=== PATIENT | male | born 1935 | race Caucasian/White ===

== ENCOUNTER 2016-09-30 08:54 | Inpatient (IN) ==
[2016-10-01] MEDS ORDERED: PNEUMOCOCCAL VAC ADMIN CHARGE INJ ONE (22:00)
[2016-10-02] MEDS ORDERED: CEFAZOLIN 2 G in NS 100 ML IV SCH (04:30)
[2016-10-02] MEDS ORDERED: PROMETHAZINE 25 MG INJECTION IVP PRN (05:00)
[2016-10-02] MEDS ORDERED: NITROGLYCERIN 0.4 MG SUBLINGUAL TABLET SL PRN (05:00)
[2016-10-02] MEDS ORDERED: ACETAMINOPHEN 325 MG TABLET PO PRN ×2 (05:00)
[2016-10-02] MEDS ORDERED: MAG-AL + SIM ORAL LIQUID 30ml PO PRN ×2 (05:00)
[2016-10-02] MEDS ORDERED: POM ALBUTEROL HFA INHALER 8gm ORAL INH PRN (05:00)
[2016-10-02] MEDS ORDERED: METOCLOPRAMIDE 10mg/2ml INJECTION IVP PRN (05:00)
[2016-10-02] MEDS ORDERED: BISACODYL 10 MG SUPPOSITORY RECTALLY PRN (05:00)
[2016-10-02] MEDS ORDERED: SALINE FLUSH 10ml SYRINGE IVF PRN (05:00)
[2016-10-02] MEDS ORDERED: BISACODYL E.C. 5 MG TABLET PO PRN ×2 (05:00)
[2016-10-02] MEDS ORDERED: LORazepam 1 MG TABLET PO PRN (05:00)
[2016-10-02] MEDS: SOTALOL 120 MG TABLET PO SCH ×2 (06:13→18:00)
--- NOTE | 2016-10-02 08:38 | XRay Report ---
INDICATION: post ppm PROCEDURE: CHEST 2-VIEWS UPRIGHT (PA & LAT) Encounter: Initial COMPARISON: October 01, 2016 FINDINGS: Left cardiac dual lead pacemaker appears stable without evidence of lead discontinuity or fracture. Lungs are stable and clear. No visible pneumothorax. Poststernotomy changes. Heart size, pulmonary vascularity and mediastinal contours are stable. Impression: Stable appearance of the left pacemaker without pneumothorax. .
[2016-10-02] MEDS ORDERED: FLUTICASONE ORAL INH SCH (09:00)
[2016-10-02] MEDS ORDERED: MINOCYCLINE 100 MG CAPSULE PO SCH (09:00)
[2016-10-02] MEDS ORDERED: LISINOPRIL 5 MG PO SCH (09:00)
[2016-10-02] MEDS ORDERED: SALMETEROL ORAL INH SCH (09:00)
[2016-10-02] MEDS: NS 1,000 ML IV SCH ×2 (13:22→14:58)
--- NOTE | 2016-10-02 18:49 | Discharge Summary ---
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
--- NOTE | 2016-10-02 20:37 | Discharge Summary ---
Discharge Information Date of admission: 10/01/16 11:10 Attending Physician: Shirley Hedrick MD Consults: 10/01/16 Pharmacy Consult [CONS] Urgent Pharmacy Consult: Heparin Comment: DX A flutter caridoversion, pacemaker surg in AM - Laboratory Labs: 10/02/16 04:36 10/02/16 04:36 History of Present Illness HPI: 10/02/16 20:30 Mr. Terrazas is doing great. Feeling much better. Only mild incisional discomfort better after Tylenol no pain drainage or swelling. Denies chest pain or shortness of breath. Has been ambulating. No symptoms otherwise normal urine and bowel movement 10/02/16 20:32 Physical examination vital signs are stable looks in no acute cardiac respiratory distress no JVD chest is clear heart is regular rate and rhythm normal S1-S2 pacemaker site looks very good well approximated mild bruise lateral to the pocket no hematoma abdomen soft nontender nondistended normoactive bowel sounds looks which without any pitting edema neurologically intact Diagnostic reviewed in detail labs are okay chest x-ray normal pacemaker position no pneumothorax. Pacemaker interrogation looks great normal function EKG looks good long first-degree AV block atrial paced more than 70% QT okay. Post pacemaker instructions and the patient provided the patient detail he was understanding I asked him to restart his Xarelto tomorrow and watch for hematoma or bleed. Patient needs anticoagulation post-cardioversion and is planned long-term. prescription provided and follow-up in my office in one to 2 weeks . Hospital Course Hospital course: Mr. Terrazas is a 81 year old male Discharge Plan - Med Rec/Dispo Truven Instructions: [facility] [place] Pacemaker Implantation Prescriptions: New Acetaminophen [Tylenol] 650 mg PO Q4H PRN PRN Reason: Pain Sotalol [Betapace] 120 mg PO ACBID #60 Minocycline [Minocin] 100 mg PO BID #10 cap No Action Albuterol Sulfate [Proair Hfa] 1 puff INH Q6H PRN #0 inhaler PRN 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 Lisinopril 5 mg PO DAILY #0 tab Rivaroxaban [Xarelto] 20 mg PO DAILY #30 tab Fluticasone/Salmeterol [Advair Hfa 115-21 Mcg Inhaler] 1 puff IH DAILY #0 Glucosam Hcl/Chondro Zamudio A/C/Mn (Glucos-Chond 500 Complex Cp) 2 cap PO HS #0 cap Atorvastatin Calcium 20 mg PO HS #0 tab - Disposition 01 Discharged Home, Self-Care
[2016-10-02] MEDS ORDERED: GLUCOSAMINE/CHONDROITIN 500 MG/400 MG CAPSULE PO SCH (22:00)
[2016-10-02] MEDS ORDERED: POM ATORVASTATIN 40 MG TABLET PO SCH (22:00)
== END 2016-10-02 19:15 | disposition home or self-care (01) | DRG 243 ==
LOC: SRG 08:54
PROVIDERS: ADMIT Internal Medicine Cardiovascular Disease; ATTEND Internal Medicine Cardiovascular Disease

== ENCOUNTER 2017-06-30 05:55 | Inpatient (IN) ==
[2017-06-30] MEDS ORDERED: ASPIRIN 81 MG CHEWABLE TABLET PO ONE (06:13)
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
[2017-06-30] MEDS: NITROGLYCERIN 0.4 MG SUBLINGUAL TABLET SL PRN ×3 (06:20→06:49)
[2017-06-30] MEDS: SALINE FLUSH 10ml SYRINGE IVF PRN (06:20)
[2017-06-30] MEDS ORDERED: AZITHROMYCIN IV 500 MG in NS 250ml 250 ML IV ONE (07:20)
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
[2017-06-30 08:12] VITALS: BMI 31.8
[2017-06-30] MEDS ORDERED: CEFTRIAXONE 500 MG in NS 50 ML IV SCH (09:00)
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
[2017-06-30] MEDS: ACETAMINOPHEN 500 MG TABLET PO PRN ×3 (10:29→22:50)
[2017-06-30] MEDS ORDERED: NITROGLYCERIN 0.4 MG SUBLINGUAL TABLET SL PRN (10:35)
[2017-06-30] MEDS ORDERED: CEFTRIAXONE 500 MG in NS 50 ML IV ONE (10:40)
[2017-06-30] MEDS: ALBUTEROL/IPRATROPIUM 2.5mg-0.5mg/3ml NEB AEROSOL SCH ×3 (12:28→20:11)
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
[2017-06-30] MEDS ORDERED: HYDROCODONE/APAP 5mg/325mg TABLET PO PRN (13:05)
[2017-06-30] MEDS ORDERED: MORPHINE SULFATE 4mg INJECTION IVP PRN (14:24)
[2017-06-30] MEDS: GUAIFENESIN/D-METHORPHAN 600mg/30mg TABLET PO SCH ×2 (14:29→21:15)
[2017-06-30] MEDS: SOTALOL 120 MG TABLET PO SCH (16:50)
[2017-06-30] MEDS: NS 1,000 ML IV SCH (17:56)
[2017-06-30] MEDS: ATORVASTATIN 20 MG TABLET PO SCH (21:15)
[2017-07-01] MEDS: ACETAMINOPHEN 500 MG TABLET PO PRN ×3 (04:52→17:37)
[2017-07-01] MEDS: ALBUTEROL/IPRATROPIUM 2.5mg-0.5mg/3ml NEB AEROSOL SCH ×4 (06:30→19:00)
[2017-07-01] MEDS ORDERED: ISOSORBIDE MONONITRATE ER 60 MG TABLET PO SCH ×2 (06:30→09:00)
[2017-07-01] MEDS: SOTALOL 120 MG TABLET PO SCH ×2 (06:58→17:37)
[2017-07-01] MEDS: AZITHROMYCIN IV 500 MG in NS 250ml 250 ML IV SCH (06:58)
[2017-07-01] MEDS: LORazepam 0.5 MG TABLET PO PRN ×3 (08:54→21:33)
[2017-07-01] MEDS: GUAIFENESIN/D-METHORPHAN 600mg/30mg TABLET PO SCH ×2 (08:55→21:28)
[2017-07-01] MEDS: CLOPIDOGREL 75 MG TABLET PO SCH (08:55)
[2017-07-01] MEDS: TRAMADOL 50 MG TABLET PO PRN ×3 (08:55→21:32)
[2017-07-01] MEDS: CEFTRIAXONE 1 G in NS 50 ML IV SCH (08:56)
[2017-07-01] MEDS: ASPIRIN *EC* 81 MG TABLET PO SCH (08:58)
[2017-07-01] MEDS ORDERED: SALMETEROL ORAL INH SCH (09:00)
[2017-07-01] MEDS ORDERED: LISINOPRIL 5 MG TABLET PO SCH (09:00)
[2017-07-01] MEDS ORDERED: FLUTICASONE ORAL INH SCH (09:00)
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
--- NOTE | 2017-07-01 11:34 | Cardiology Progress Note ---
<Muriel Pollock L - Last Filed: 07/01/17 15:27> Exam Vital signs: Temperature 95.8 F L 07/01/17 07:33 Pulse Rate 68 07/01/17 07:33 Respiratory Rate 22 07/01/17 10:40 Blood Pressure 126/58 07/01/17 07:33 Pulse Oximetry 94 07/01/17 10:50 Inpatient Medications: Generic Name Dose Route Start Last Admin Trade Name Freq PRN Reason Stop Dose Admin Acetaminophen 1,000 mg 06/30/17 10:25 07/01/17 04:52 Tylenol PO 1,000 mg Q6H PRN Administration Discomfort Hydrocodone Bitart/Acetaminophen 1 tab 06/30/17 13:05 06/30/17 13:10 [place] 5/325 PO 1 tab Q4H PRN Administration Pain Albuterol/Ipratropium 3 ml 06/30/17 11:00 07/01/17 10:40 Duoneb AEROSOL 3 ml RTQID ALEXA Administration Aspirin 81 mg 07/01/17 09:00 07/01/17 08:58 Ecotrin PO 81 mg DAILY ALEXA Administration Atorvastatin Calcium 20 mg 06/30/17 21:00 06/30/17 21:15 Lipitor PO 20 mg HS ALEXA Administration Budesonide 0.5 mg 07/01/17 19:00 Pulmicort Inhalation AEROSOL RTBID ALEXA Clopidogrel Bisulfate 75 mg 07/01/17 09:00 07/01/17 08:55 Plavix PO 75 mg DAILY ALEXA Administration Guaifenesin/Dextromethorphan 1 tab 06/30/17 14:24 07/01/17 08:55 Mucinex Dm PO 1 tab BID ALEXA Administration Azithromycin 500 mg/ Sodium 250 mls @ 167 mls/hr 07/01/17 07:30 07/01/17 09: 04 Chloride IV Infused Q24H ALEXA Infusion Ceftriaxone Sodium 1 g/ Sodium 50 mls @ 100 mls/hr 07/01/17 09:00 07/01/17 09 :36 Chloride IV Infused Q24H ALEXA Infusion Sodium Chloride 1,000 mls @ 50 mls/hr 06/30/17 18:00 06/30/17 17:56 Normal Saline IV 50 mls/hr .Q20H ALEXA Administration Isosorbide Mononitrate 120 mg 07/01/17 06:30 Imdur PO ACB ALEXA Lisinopril 5 mg 07/01/17 09:00 07/01/17 08:55 Prinivil PO 5 mg DAILY ALEXA Administration Lorazepam 0.25 - 0.5 mg 07/01/17 08:12 07/01/17 08:54 Ativan PO 0.25 mg Q6H PRN Administration Morphine Sulfate 2 - 4 mg 06/30/17 14:24 06/30/17 14:30 Morphine Sulfate Inj IVP 4 mg Q2H PRN Administration Pain Nitroglycerin 0.4 mg 06/30/17 10:35 Nitrostat SL Q5M PRN chest pain or pressure Sodium Chloride 10 - 80 ml 06/30/17 06:13 06/30/17 06:20 Iv Flush IVF 10 ml PRN PRN Administration Flushing Sotalol HCl 120 mg 06/30/17 17:00 07/01/17 06:58 Betapace PO 120 mg ACBID ALEXA Administration Tramadol HCl 50 - 100 mg 07/01/17 08:13 07/01/17 08:55 Ultram PO 50 mg Q6H PRN Administration Pain Discontinued Medications Generic Name Dose Route Start Last Admin Trade Name Freq PRN Reason Stop Dose Admin Aspirin 324 mg 06/30/17 06:13 06/30/17 06:18 Asa PO 06/30/17 06:14 324 mg O ONE Administration Azithromycin 500 mg/ Sodium 250 mls @ 167 mls/hr 06/30/17 07:20 06/30/17 09: 16 Chloride IV 06/30/17 08:49 Infused O ONE Infusion Ceftriaxone Sodium 500 mg/ 50 mls @ 100 mls/hr 06/30/17 09:00 06/30/17 09:50 Sodium Chloride IV Infused DAILY ALEXA Infusion Ceftriaxone Sodium 500 mg/ 50 mls @ 100 mls/hr 06/30/17 10:40 06/30/17 11:42 Sodium Chloride IV 06/30/17 11:09 Infused DAILY ONE Infusion Isosorbide Mononitrate 60 mg 07/01/17 09:00 Imdur PO DAILY ALEXA Nitroglycerin 0.4 mg 06/30/17 06:13 06/30/17 06:49 Nitrostat SL 0.4 mg Q5MIN3 PRN Administration Chest pain Fluticasone/Salmeterol 1 puff 07/01/17 09:00 07/01/17 11:10 Advair Hfa ORAL INH Not Given DAILY ALEXA - Constitutional no acute distress, well developed, obese, cooperative - Routine HEENT Exam Head: Present: normocephalic, atraumatic Eye: Present: EOMI ENT: Present: mucous membranes dry - Routine Neck Exam Present: supple, full ROM, normal carotid upstroke. Absent: JVD, carotid bruit - Routine Chest/Breast/Axilla Exam Chest wall: Present: pacemaker (PPM and bypass scars look good) - Routine Respiratory Exam Present: decreased breath sounds (bases). Absent: rhonchi, wheezes, crackles - Routine Cardiovascular Exam Present: RRR. Absent: murmur - Routine Abdominal Exam Present: soft, normoactive bowel sounds, non distended, non tender. Absent: organomegaly, mass - Routine Extremities Exam Present: edema (minimal bilateral ankle pitting edema), pulses intact, normal capillary refill. Absent: cyanosis, clubbing - Routine Skin Exam Present: intact, dry, warm. Absent: cyanosis, erythema - Routine Neurological Exam Present: alert, oriented X3, CN II-XII intact, moving all extremities, vision grossly intact, hearing grossly intact, normal speech - Routine Psychiatric Exam Present: normal affect, cooperative, good judgment Results 07/01/17 11:28 07/01/17 11:28 Cardiac Enzymes 06/30/17 Range/Units 17:46 Troponin I 0.035 (0-0.12) ng/ml CBC 07/01/17 Range/Units 04:08 WBC 25.8 H* (4.5-11.0) T/MM3 RBC 4.13 L (4.50-5.90) M/MM3 Hgb 12.2 L (13.5-17.5) GM/DL Hct 38.4 L (41-53) % Plt Count 222 (130-400) T/MM3 Neut # (Auto) Not performed Lymph # (Auto) Not performed [place] # (Auto) Not performed Eos # (Auto) Not performed Baso # (Auto) Not performed Comprehensive Metabolic Panel 07/01/17 Range/Units 04:08 Sodium 139 (134-144) MEQ/L Potassium 4.4 (3.6-5) MEQ/L Chloride 101 (98-107) MEQ/L Carbon Dioxide 24 (22-30) MEQ/L BUN 28.0 H D (9-20) MG/DL Creatinine 1.3 D (0.8-1.5) MG/DL Glucose 119 H (75-110) MG/DL Calcium 9.1 (8.4-10.2) MG/DL Intake and Output 06/30/17 07/01/17 07/01/17 22:59 06:59 14:59 Intake Total 250 / 250 300 / 300 300 / 300 Output Total 275 / 275 Balance 250 / 250 25 / 25 300 / 300 Intake: IV 300 / 300 Azithromycin IV 500 mg In NS 250 / 250 250ml 250 ml @ 167 mls/hr IV Q24H ALEXA Rx#:[id number] Ceftriaxone 1 g In Ns 50 ml @ 50 / 50 100 mls/hr IV Q24H ALEXA Rx#: [id number] Oral 250 / 250 300 / 300 Output: Urine 275 / 275 Other: Urine Appearance Clear Urine Color Dark Carol Urine Odor Normal Size of Bowel Movement Moderate # Voids 1 # Bowel Movements 1 - Imaging and Cardiology Echo: image reviewed (please refer to echo report) EKG results: image reviewed (SR with 1st degree AV block, improved T wave inversion, inferior q waves) Assessment and Plan - Assessment and Plan pleuritic CP d/t LLL pneumonia abnormal ekg - with repolarization abnormality, memory phenomenon from previous ventricular paced rhythm vs. sotalol effect vs. silent myocardial ischemia CAD s/p CABG influenza Reschedule December OP appt sooner to week of August Will sign off d/t non cardiac related CP. Please call if need further assistance. Thank you Pt was personally seen and interviewed by Dr. Yousuf Hedrick who created the A&P. Hospital Course Summary Disclaimer: The visit summary below is not to be considered part of the above Progress Note. Hospital Course: 06/30/17 Admit, observation status, under Dr. Marrero. Later changed to inpatient. CAP/leukocytosis: PSI/PORT score 101, risk class IV with 8.2-9.3% mortality. Rocephin/Azithromycin for antimicrobial coverage. Acapella. Check urine legionella and strep pneumo antigens. Chest wall pain: Tylenol PRN (pt refuses anything stronger than Tylenol). COPD: DuoNeb QID, resume home Advair. Monitor sats closely - high risk for hypoxia. Abnormal EKG: will discuss with Dr. Hedrick. Advanced directives: Daughter (Summer) used to be DPOA but as her caregiver, she is not allowed to do both duties. He requests full resuscitation. 07/01/17 Increasing leukocytosis (25.8) and bandemia (17%). Continue Rocephin and azithromycin for CAP (Day #2). Supportive care for influenza B -- he was outside the window for treatment with Tamiflu. Substitute Pulmicort for Advair and continue DuoNeb. Urine legionella was negative; strep pneumo pending. Tramadol and low-dose Ativan PRN chest wall pain and air hunger. Slight increase in creatinine to 1.3 - continue with IVF. No evidence of failure. Dr. Hedrick on board and we appreciate his expertise in balancing fluid status. <Shirley Hedrick - Last Filed: 07/06/17 22:27> Exam Vital signs: Temperature 95.8 F L 07/01/17 15:00 Pulse Rate 67 07/01/17 17:37 Respiratory Rate 18 07/01/17 19:00 Blood Pressure 109/50 07/01/17 15:00 Pulse Oximetry 95 07/01/17 15:00 Inpatient Medications: Generic Name Dose Route Start Last Admin Trade Name Freq PRN Reason Stop Dose Admin Acetaminophen 1,000 mg 06/30/17 10:25 07/01/17 17:37 Tylenol PO 1,000 mg Q6H PRN Administration Discomfort Hydrocodone Bitart/Acetaminophen 1 tab 06/30/17 13:05 06/30/17 13:10 [place] 5/325 PO 1 tab Q4H PRN Administration Pain Albuterol/Ipratropium 3 ml 06/30/17 11:00 07/01/17 19:00 Duoneb AEROSOL 3 ml RTQID ALEXA Administration Aspirin 81 mg 07/01/17 09:00 07/01/17 08:58 Ecotrin PO 81 mg DAILY ALEXA Administration Atorvastatin Calcium 20 mg 06/30/17 21:00 06/30/17 21:15 Lipitor PO 20 mg HS ALEXA Administration Budesonide 0.5 mg 07/01/17 19:00 07/01/17 19:00 Pulmicort Inhalation AEROSOL 0.5 mg RTBID ALEXA Administration Clopidogrel Bisulfate 75 mg 07/01/17 09:00 07/01/17 08:55 Plavix PO 75 mg DAILY ALEXA Administration Guaifenesin/Dextromethorphan 1 tab 06/30/17 14:24 07/01/17 08:55 Mucinex Dm PO 1 tab BID ALEXA Administration Azithromycin 500 mg/ Sodium 250 mls @ 167 mls/hr 07/01/17 07:30 07/01/17 09: 04 Chloride IV Infused Q24H ALEXA Infusion Ceftriaxone Sodium 1 g/ Sodium 50 mls @ 100 mls/hr 07/01/17 09:00 07/01/17 09 :36 Chloride IV Infused Q24H ALEXA Infusion Sodium Chloride 1,000 mls @ 50 mls/hr 06/30/17 18:00 07/01/17 17:36 Normal Saline IV 50 mls/hr .Q20H ALEXA Administration Isosorbide Mononitrate 120 mg 07/01/17 06:30 Imdur PO ACB ALEXA Lisinopril 5 mg 07/01/17 09:00 07/01/17 08:55 Prinivil PO 5 mg DAILY ALEXA Administration Lorazepam 0.25 - 0.5 mg 07/01/17 08:12 07/01/17 15:33 Ativan PO 0.25 mg Q6H PRN Administration Morphine Sulfate 2 - 4 mg 06/30/17 14:24 06/30/17 14:30 Morphine Sulfate Inj IVP 4 mg Q2H PRN Administration Pain Nitroglycerin 0.4 mg 06/30/17 10:35 Nitrostat SL Q5M PRN chest pain or pressure Sodium Chloride 10 - 80 ml 06/30/17 06:13 06/30/17 06:20 Iv Flush IVF 10 ml PRN PRN Administration Flushing Sotalol HCl 120 mg 06/30/17 17:00 07/01/17 17:37 Betapace PO 120 mg ACBID ALEXA Administration Tramadol HCl 50 - 100 mg 07/01/17 08:13 07/01/17 15:33 Ultram PO 100 mg Q6H PRN Administration Pain Discontinued Medications Generic Name Dose Route Start Last Admin Trade Name Freq PRN Reason Stop Dose Admin Aspirin 324 mg 06/30/17 06:13 06/30/17 06:18 Asa PO 06/30/17 06:14 324 mg O ONE Administration Azithromycin 500 mg/ Sodium 250 mls @ 167 mls/hr 06/30/17 07:20 06/30/17 09: 16 Chloride IV 06/30/17 08:49 Infused O ONE Infusion Ceftriaxone Sodium 500 mg/ 50 mls @ 100 mls/hr 06/30/17 09:00 06/30/17 09:50 Sodium Chloride IV Infused DAILY ALEXA Infusion Ceftriaxone Sodium 500 mg/ 50 mls @ 100 mls/hr 06/30/17 10:40 06/30/17 11:42 Sodium Chloride IV 06/30/17 11:09 Infused DAILY ONE Infusion Isosorbide Mononitrate 60 mg 07/01/17 09:00 Imdur PO DAILY ALEXA Nitroglycerin 0.4 mg 06/30/17 06:13 06/30/17 06:49 Nitrostat SL 0.4 mg Q5MIN3 PRN Administration Chest pain Fluticasone/Salmeterol 1 puff 07/01/17 09:00 07/01/17 11:10 Advair Hfa ORAL INH Not Given DAILY [facility] Results 07/06/17 04:03 07/06/17 04:03 CBC 07/01/17 07/01/17 Range/Units 04:08 11:28 WBC 25.8 H* 23.4 H (4.5-11.0) T/MM3 RBC 4.13 L 3.97 L (4.50-5.90) M/MM3 Hgb 12.2 L 11.8 L (13.5-17.5) GM/DL Hct 38.4 L 36.9 L (41-53) % Plt Count 222 209 (130-400) T/MM3 Neut # (Auto) Not performed Not performed Lymph # (Auto) Not performed Not performed [place] # (Auto) Not performed Not performed Eos # (Auto) Not performed Not performed Baso # (Auto) Not performed Not performed Comprehensive Metabolic Panel 07/01/17 07/01/17 Range/Units 04:08 11:28 Sodium 139 138 (134-144) MEQ/L Potassium 4.4 4.1 (3.6-5) MEQ/L Chloride 101 101 (98-107) MEQ/L Carbon Dioxide 24 27 (22-30) MEQ/L BUN 28.0 H D 30.0 H (9-20) MG/DL Creatinine 1.3 D 1.3 (0.8-1.5) MG/DL Glucose 119 H 115 H (75-110) MG/DL Calcium 9.1 8.7 (8.4-10.2) MG/DL Intake and Output 07/01/17 07/01/17 07/01/17 06:59 14:59 22:59 Intake Total 300 / 300 2099 / 2099 Output Total 275 / 275 Balance 2099 Intake: IV 1300 / 1300 Azithromycin IV 500 mg In NS 250 / 250 250ml 250 ml @ 167 mls/hr IV Q24H ALEXA Rx#:[id number] Ceftriaxone 1 g In Ns 50 ml @ 50 / 50 100 mls/hr IV Q24H ALEXA Rx#: [id number] Ns 1,000 ml @ 50 mls/hr IV . 1000 / 1000 Q20H ALEXA Rx#:[id number] Oral 300 / 300 800 / 800 Output: Urine 275 / 275 Other: Urine Appearance Clear Urine Color Dark Carol Urine Odor Normal Size of Bowel Movement Moderate # Voids 1 # Bowel Movements 1 Weight 103.5 kg Patient Weight 07/02/17 06:59 Weight 103.5 kg Assessment and Plan - Assessment and Plan EKG abnormality is most likley d/t memory phenomenon. no regional wall motion abnormality on echocardiogram , to suggest silent myocardial ischemia of that size. EKG changes look less prominent in comparison. no acute coronary syndrome continue current medical Rx isosorbide held this am d/t relative hypotension will stop lisinopril (risk of hypotension >benefit ) ,so that pt gets back on his Isosorbide as an effective antianginal Rx will see tomorrow for f/u on BP. I personally interviewed and examined pt and formualted the assessment and plan . agree with the above. - Attestation Attestation Narrative: 07/06/17 22:27 i personally interviewed and examined pt and I agree with the above Hospital Course Summary Disclaimer: The visit summary below is not to be considered part of the above Progress Note.
--- NOTE | 2017-07-01 17:00 | Echocardiogram ---
LIMITED ECHOCARDIOGRAM DATE 06/30/2017 INDICATION Abnormal EKG, influenza, coronary artery disease with previous CABG. TECHNICAL QUALITY: Technically difficult and limited study due to only limited views were obtained. Basically parasternal 2D images with limited Doppler. The study was not completed due to patient's intolerance to supine position which is chronic for him and associated with his chronic obstructive pulmonary disease. FINDINGS 1. CARDIAC CHAMBERS. All cardiac chambers are grossly normal in size. RV size and contractility appear normal. Left atrium measures 3.2 cm. Left ventricle measures 5.1 cm. 2. LV FUNCTION. Analysis reveals wall thickness to be upper normal range, measured 10.6 mm in the posterior wall, 11.3 mm in the septal wall. Wall motion analysis based on the limited views (parasternal long axis and short axis views) show normal contractility and normal LV systolic function and no significant regional wall motion abnormality was appreciated. Ejection fraction is estimated about 65%. 3. VALVES. Aortic valve exhibits sclerotic changes, valve excursion is normal. Mitral valve structure and motion appear normal, normal valve excursion. 4. DOPPLER. Limited Doppler did not show any significant valvular stenosis or regurgitation. 5. No evidence of pericardial effusion, intracardiac masses, thrombi, vegetations or shunts. IMPRESSION 1. Technically limited study. 2. Borderline LVH with good systolic function and no significant regional wall motion abnormality seen. MTDD
[2017-07-01] MEDS: NS 1,000 ML IV SCH (17:36)
[2017-07-01] MEDS: BUDESONIDE INH.SOLN 0.5mg/2ml NEB AEROSOL SCH (19:00)
[2017-07-01] MEDS: ATORVASTATIN 20 MG TABLET PO SCH (21:28)
[2017-07-02] MEDS: ACETAMINOPHEN 500 MG TABLET PO PRN ×3 (00:42→23:38)
[2017-07-02] MEDS: SOTALOL 120 MG TABLET PO SCH ×2 (06:11→18:09)
[2017-07-02] MEDS: BUDESONIDE INH.SOLN 0.5mg/2ml NEB AEROSOL SCH ×2 (07:35→19:02)
[2017-07-02] MEDS: ALBUTEROL/IPRATROPIUM 2.5mg-0.5mg/3ml NEB AEROSOL SCH ×4 (07:35→19:02)
[2017-07-02] MEDS: AZITHROMYCIN IV 500 MG in NS 250ml 250 ML IV SCH (07:45)
[2017-07-02] MEDS: GUAIFENESIN/D-METHORPHAN 600mg/30mg TABLET PO SCH ×2 (09:09→21:08)
[2017-07-02] MEDS: ASPIRIN *EC* 81 MG TABLET PO SCH (09:09)
[2017-07-02] MEDS: CLOPIDOGREL 75 MG TABLET PO SCH (09:09)
--- NOTE | 2017-07-02 09:39 | XRay Report ---
INDICATION: hypoxia and pneumonia PROCEDURE: CHEST 2-VIEWS UPRIGHT (PA & LAT) Encounter: Initial COMPARISON: June 30, 2017 FINDINGS: Persistent airspace consolidation in the peripheral left lower lobe obscuring the left heart border. There is additional airspace opacity along the right minor fissure. No pneumothorax. Small left pleural effusion. Heart size and mediastinal contours are stable. Pulmonary vascularity is normal. Left pacemaker and prior CABG. Impression: Persistent findings of pneumonia, worst in the left lower lobe with a small parapneumonic effusion. .
[2017-07-02] MEDS: CEFTRIAXONE 1 G in NS 50 ML IV SCH (09:48)
--- NOTE | 2017-07-02 09:57 | Cardiology Progress Note ---
<Muriel Pollock L - Last Filed: 07/02/17 15:53> Exam Vital signs: Temperature 95.9 F L 07/02/17 07:51 Pulse Rate 63 07/02/17 07:51 Respiratory Rate 18 07/02/17 07:51 Blood Pressure 114/75 07/02/17 07:51 Pulse Oximetry 92 07/02/17 07:51 Inpatient Medications: Generic Name Dose Route Start Last Admin Trade Name Freq PRN Reason Stop Dose Admin Acetaminophen 1,000 mg 06/30/17 10:25 07/02/17 00:42 Tylenol PO 1,000 mg Q6H PRN Administration Discomfort Hydrocodone Bitart/Acetaminophen 1 tab 06/30/17 13:05 06/30/17 13:10 Donnelly 5/325 PO 1 tab Q4H PRN Administration Pain Albuterol/Ipratropium 3 ml 06/30/17 11:00 07/02/17 07:35 Duoneb AEROSOL 3 ml RTQID ALEXA Administration Aspirin 81 mg 07/01/17 09:00 07/02/17 09:09 Ecotrin PO 81 mg DAILY ALEXA Administration Atorvastatin Calcium 20 mg 06/30/17 21:00 07/01/17 21:28 Lipitor PO 20 mg HS ALEXA Administration Budesonide 0.5 mg 07/01/17 19:00 07/02/17 07:35 Pulmicort Inhalation AEROSOL 0.5 mg RTBID ALEXA Administration Clopidogrel Bisulfate 75 mg 07/01/17 09:00 07/02/17 09:09 Plavix PO 75 mg DAILY ALEXA Administration Guaifenesin/Dextromethorphan 1 tab 06/30/17 14:24 07/02/17 09:09 Mucinex Dm PO 1 tab BID ALEXA Administration Azithromycin 500 mg/ Sodium 250 mls @ 167 mls/hr 07/01/17 07:30 07/02/17 07: 45 Chloride IV 167 mls/hr Q24H ALEXA Administration Ceftriaxone Sodium 1 g/ Sodium 50 mls @ 100 mls/hr 07/01/17 09:00 07/02/17 09 :48 Chloride IV 100 mls/hr Q24H ALEXA Administration Sodium Chloride 1,000 mls @ 50 mls/hr 06/30/17 18:00 07/01/17 17:36 Normal Saline IV 50 mls/hr .Q20H ALEXA Administration Isosorbide Mononitrate 120 mg 07/01/17 06:30 07/02/17 06:10 Imdur PO Not Given ACB ALEXA Lorazepam 0.25 - 0.5 mg 07/01/17 08:12 07/01/17 21:33 Ativan PO 0.5 mg Q6H PRN Administration Morphine Sulfate 2 - 4 mg 06/30/17 14:24 06/30/17 14:30 Morphine Sulfate Inj IVP 4 mg Q2H PRN Administration Pain Nitroglycerin 0.4 mg 06/30/17 10:35 Nitrostat SL Q5M PRN chest pain or pressure Sodium Chloride 10 - 80 ml 06/30/17 06:13 06/30/17 06:20 Iv Flush IVF 10 ml PRN PRN Administration Flushing Sotalol HCl 120 mg 06/30/17 17:00 07/02/17 06:11 Betapace PO Not Given ACBID ALEXA Tramadol HCl 50 - 100 mg 07/01/17 08:13 07/01/17 21:32 Ultram PO 100 mg Q6H PRN Administration Pain Discontinued Medications Generic Name Dose Route Start Last Admin Trade Name Freq PRN Reason Stop Dose Admin Aspirin 324 mg 06/30/17 06:13 06/30/17 06:18 Asa PO 06/30/17 06:14 324 mg O ONE Administration Azithromycin 500 mg/ Sodium 250 mls @ 167 mls/hr 06/30/17 07:20 06/30/17 09: 16 Chloride IV 06/30/17 08:49 Infused O ONE Infusion Ceftriaxone Sodium 500 mg/ 50 mls @ 100 mls/hr 06/30/17 09:00 06/30/17 09:50 Sodium Chloride IV Infused DAILY ALEXA Infusion Ceftriaxone Sodium 500 mg/ 50 mls @ 100 mls/hr 06/30/17 10:40 06/30/17 11:42 Sodium Chloride IV 06/30/17 11:09 Infused DAILY ONE Infusion Isosorbide Mononitrate 60 mg 07/01/17 09:00 Imdur PO DAILY ALEXA Lisinopril 5 mg 07/01/17 09:00 07/01/17 08:55 Prinivil PO 5 mg DAILY ALEXA Administration Nitroglycerin 0.4 mg 06/30/17 06:13 06/30/17 06:49 Nitrostat SL 0.4 mg Q5MIN3 PRN Administration Chest pain Fluticasone/Salmeterol 1 puff 07/01/17 09:00 07/01/17 11:10 Advair Hfa ORAL INH Not Given DAILY ALEXA - Constitutional no acute distress, well developed, cooperative - Routine HEENT Exam Head: Present: normocephalic, atraumatic Eye: Present: EOMI ENT: Present: mucous membranes dry - Routine Neck Exam Present: supple, full ROM, normal carotid upstroke. Absent: JVD, carotid bruit - Routine Respiratory Exam Present: decreased breath sounds (LL base), crackles (minimal bilateral bases, cough cleared crackles). Absent: rhonchi, wheezes - Routine Cardiovascular Exam Present: RRR, no murmur - Routine Abdominal Exam Present: soft, normoactive bowel sounds, non tender. Absent: organomegaly, mass - Routine Extremities Exam Present: edema (trace bilateral pedal edema), pulses intact, normal capillary refill. Absent: cyanosis, clubbing - Routine Skin Exam Present: intact, dry, warm. Absent: cyanosis, erythema - Routine Neurological Exam Present: alert, oriented X3, CN II-XII intact, moving all extremities, vision grossly intact, hearing grossly intact, normal speech. Absent: sensory deficit , motor deficit - Routine Psychiatric Exam Present: normal affect, cooperative, good insight Results 07/01/17 11:28 07/01/17 11:28 CBC 07/01/17 Range/Units 11:28 WBC 23.4 H (4.5-11.0) T/MM3 RBC 3.97 L (4.50-5.90) M/MM3 Hgb 11.8 L (13.5-17.5) GM/DL Hct 36.9 L (41-53) % Plt Count 209 (130-400) T/MM3 Neut # (Auto) Not performed Lymph # (Auto) Not performed [place] # (Auto) Not performed Eos # (Auto) Not performed Baso # (Auto) Not performed Comprehensive Metabolic Panel 07/01/17 Range/Units 11:28 Sodium 138 (134-144) MEQ/L Potassium 4.1 (3.6-5) MEQ/L Chloride 101 (98-107) MEQ/L Carbon Dioxide 27 (22-30) MEQ/L BUN 30.0 H (9-20) MG/DL Creatinine 1.3 (0.8-1.5) MG/DL Glucose 115 H (75-110) MG/DL Calcium 8.7 (8.4-10.2) MG/DL Intake and Output 07/01/17 07/02/17 07/02/17 22:59 06:59 14:59 Other: # Voids 2 2 # Bowel Movements 2 - Imaging and Cardiology Imaging & Cardiology Narrative: CXR 07/02/17 Impression: Persistent findings of pneumonia, worst in the left lower lobe with a small parapneumonic effusion. Assessment and Plan - Assessment and Plan pleuritic CP d/t LLL pneumonia abnormal ekg - EKG abnormality is most likely d/t memory phenomenon. no regional wall motion abnormality on echocardiogram, to suggest silent myocardial ischemia of that size. EKG changes on 07/01 look less prominent in comparison. no acute coronary syndrome. CAD s/p CABG PPM influenza Recommend isosorbide 60 mg daily. Discontinue Lisinopril. Watch standing BP and dizziness. If BP goes above 120 systolic, please titrate isosorbide to his normal dose of 120mg daily if tolerated. Will see in office at his next appt in early August. Pacing with long AR interval d/t MVP. Reprogrammed mode to DDDR. Agree with reprogramming. Normal PPM function. Pt was personally seen and interviewed by Dr. Yousuf Hedrick who created the A&P. Hospital Course Summary Disclaimer: The visit summary below is not to be considered part of the above Progress Note. Hospital Course: 06/30/17 Admit, observation status, under Dr. Marrero. Later changed to inpatient. CAP/leukocytosis: PSI/PORT score 101, risk class IV with 8.2-9.3% mortality. Rocephin/Azithromycin for antimicrobial coverage. Acapella. Check urine legionella and strep pneumo antigens. Chest wall pain: Tylenol PRN (pt refuses anything stronger than Tylenol). COPD: DuoNeb QID, resume home Advair. Monitor sats closely - high risk for hypoxia. Abnormal EKG: will discuss with Dr. Hedrick. Advanced directives: Daughter (Summer) used to be DPOA but as her caregiver, she is not allowed to do both duties. He requests full resuscitation. 07/01/17 Increasing leukocytosis (25.8) and bandemia (17%). Continue Rocephin and azithromycin for CAP (Day #2). Supportive care for influenza B -- he was outside the window for treatment with Tamiflu. Substitute Pulmicort for Advair and continue DuoNeb. Urine legionella was negative; strep pneumo pending. Tramadol and low-dose Ativan PRN chest wall pain and air hunger. Slight increase in creatinine to 1.3 - continue with IVF. No evidence of failure. Dr. Hedrick on board and we appreciate his expertise in balancing fluid status. <Shirley Hedrick Yousuf - Last Filed: 07/06/17 22:28> Exam Vital signs: Temperature 98.6 F 07/06/17 16:00 Pulse Rate 72 07/06/17 20:03 Respiratory Rate 20 07/06/17 20:03 Blood Pressure 125/52 07/06/17 20:03 Pulse Oximetry 93 07/06/17 20:03 Inpatient Medications: Generic Name Dose Route Start Last Admin Trade Name Freq PRN Reason Stop Dose Admin Acetaminophen 1,000 mg 06/30/17 10:25 07/06/17 17:24 Tylenol PO 1,000 mg Q6H PRN Administration Discomfort Hydrocodone Bitart/Acetaminophen 1 tab 06/30/17 13:05 06/30/17 13:10 Donnelly 5/325 PO 1 tab Q4H PRN Administration Pain Albuterol/Ipratropium 3 ml 06/30/17 11:00 07/06/17 19:38 Duoneb AEROSOL 3 ml RTQID ALEXA Administration Aspirin 81 mg 07/01/17 09:00 07/06/17 09:44 Ecotrin PO 81 mg DAILY ALEXA Administration Atorvastatin Calcium 20 mg 06/30/17 21:00 07/06/17 21:28 Lipitor PO 20 mg HS ALEXA Administration Budesonide 0.5 mg 07/01/17 19:00 07/06/17 19:38 Pulmicort Inhalation AEROSOL 0.5 mg RTBID ALEXA Administration Clopidogrel Bisulfate 75 mg 07/01/17 09:00 07/06/17 09:42 Plavix PO 75 mg DAILY ALEXA Administration Furosemide 40 mg 07/04/17 17:00 07/06/17 17:25 Lasix PO 40 mg 0900,1700 ALEXA Administration Guaifenesin/Dextromethorphan 1 tab 06/30/17 14:24 07/06/17 20:09 Mucinex Dm PO 1 tab BID ALEXA Administration Ceftriaxone Sodium 1 g/ Sodium 50 mls @ 100 mls/hr 07/01/17 09:00 07/06/17 10 :14 Chloride IV Infused Q24H ALEXA Infusion Isosorbide Mononitrate 120 mg 07/06/17 06:30 07/06/17 06:40 Imdur PO 120 mg ACB ALEXA Administration Morphine Sulfate 2 - 4 mg 06/30/17 14:24 06/30/17 14:30 Morphine Sulfate Inj IVP 4 mg Q2H PRN Administration Pain Nitroglycerin 0.4 mg 06/30/17 10:35 Nitrostat SL Q5M PRN chest pain or pressure Potassium Chloride 20 meq 07/04/17 17:30 07/06/17 17:26 K-Dur 20 Meq Tablet PO 20 meq BIDWM ALEXA Administration Sodium Chloride 10 - 80 ml 06/30/17 06:13 07/06/17 20:10 Iv Flush IVF 10 ml PRN PRN Administration Flushing Sodium Chloride 500 ml 07/05/17 10:01 07/06/17 09:45 Normal Saline IV 500 ml PRN PRN Administration Sodium Phosphate 500 mg 07/03/17 08:00 07/06/17 17:25 K-Phos *Neutral* Tablet PO 500 mg WM ALEXA Administration Sotalol HCl 120 mg 06/30/17 17:00 07/06/17 17:25 Betapace PO 120 mg ACBID ALEXA Administration Tramadol HCl 50 - 100 mg 07/01/17 08:13 07/02/17 18:10 Ultram PO 100 mg Q6H PRN Administration Pain Discontinued Medications Generic Name Dose Route Start Last Admin Trade Name Freq PRN Reason Stop Dose Admin Aspirin 324 mg 06/30/17 06:13 06/30/17 06:18 Asa PO 06/30/17 06:14 324 mg O ONE Administration Furosemide 40 mg 07/04/17 07:00 07/04/17 06:30 Lasix IVP 07/04/17 07:01 40 mg ONCE ONE Administration Azithromycin 500 mg/ Sodium 250 mls @ 167 mls/hr 06/30/17 07:20 06/30/17 09: 16 Chloride IV 06/30/17 08:49 Infused O ONE Infusion Azithromycin 500 mg/ Sodium 250 mls @ 167 mls/hr 07/01/17 07:30 07/04/17 09: 33 Chloride IV Infused Q24H ALEXA Infusion Ceftriaxone Sodium 500 mg/ 50 mls @ 100 mls/hr 06/30/17 09:00 06/30/17 09:50 Sodium Chloride IV Infused DAILY ALEXA Infusion Ceftriaxone Sodium 500 mg/ 50 mls @ 100 mls/hr 06/30/17 10:40 06/30/17 11:42 Sodium Chloride IV 06/30/17 11:09 Infused DAILY ONE Infusion Sodium Chloride 1,000 mls @ 50 mls/hr 06/30/17 18:00 07/03/17 15:06 Normal Saline IV 50 mls/hr .Q20H ALEXA Administration Isosorbide Mononitrate 60 mg 07/01/17 09:00 Imdur PO DAILY ALEXA Isosorbide Mononitrate 120 mg 07/01/17 06:30 07/02/17 06:10 Imdur PO Not Given ACB ALEXA Isosorbide Mononitrate 60 mg 07/03/17 06:30 07/05/17 05:31 Imdur PO 60 mg ACB ALEXA Administration Lisinopril 5 mg 07/01/17 09:00 07/01/17 08:55 Prinivil PO 5 mg DAILY ALEXA Administration Lorazepam 0.25 - 0.5 mg 07/01/17 08:12 07/01/17 21:33 Ativan PO 0.5 mg Q6H PRN Administration Nitroglycerin 0.4 mg 06/30/17 06:13 06/30/17 06:49 Nitrostat SL 0.4 mg Q5MIN3 PRN Administration Chest pain Potassium Chloride 20 meq 07/05/17 12:30 07/05/17 12:41 K-Dur 20 Meq Tablet PO 07/05/17 12:31 20 meq O ONE Administration Potassium Chloride 20 meq 07/06/17 12:30 07/06/17 13:07 K-Dur 20 Meq Tablet PO 07/06/17 12:31 20 meq O ONE Administration Fluticasone/Salmeterol 1 puff 07/01/17 09:00 07/01/17 11:10 Advair Hfa ORAL INH Not Given DAILY ALEXA Results 07/06/17 04:03 07/06/17 04:03 CBC 07/06/17 Range/Units 04:03 WBC 11.3 H (4.5-11.0) T/MM3 RBC 3.79 L (4.50-5.90) M/MM3 Hgb 11.2 L (13.5-17.5) GM/DL Hct 34.4 L (41-53) % Plt Count 416 H (130-400) T/MM3 Neut # (Auto) Not performed Lymph # (Auto) Not performed [place] # (Auto) Not performed Eos # (Auto) Not performed Baso # (Auto) Not performed Comprehensive Metabolic Panel 07/06/17 Range/Units 04:03 Sodium 142 (134-144) MEQ/L Potassium 3.5 L (3.6-5) MEQ/L Chloride 103 (98-107) MEQ/L Carbon Dioxide 28 (22-30) MEQ/L BUN 18.0 (9-20) MG/DL Creatinine 0.9 (0.8-1.5) mg/dL Glucose 104 (75-110) MG/DL Calcium 8.8 (8.4-10.2) MG/DL Intake and Output 07/06/17 07/06/17 07/06/17 06:59 14:59 22:59 Intake Total 850 / 850 Output Total 300 / 300 500 / 500 Balance 550 / 550 -500 / -500 Intake: IV 50 / 50 Ceftriaxone 1 g In Ns 50 ml @ 50 / 50 100 mls/hr IV Q24H [facility] Rx#: [id number] Oral 800 / 800 Output: Urine 300 / 300 500 / 500 Other: Urine Appearance Clear Clear Urine Color Dark Yellow Dark Yellow Urine Odor Normal # Voids 1 # Bowel Movements 1 Weight 103.3 kg Patient Weight 07/07/17 06:59 Weight 103.3 kg Assessment and Plan - Assessment and Plan personally interviewed and examined and I agree with the above Hospital Course Summary Disclaimer: The visit summary below is not to be considered part of the above Progress Note.
[2017-07-02] MEDS: NS 1,000 ML IV SCH (15:49)
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
[2017-07-02] MEDS: TRAMADOL 50 MG TABLET PO PRN (18:10)
[2017-07-02] MEDS: ATORVASTATIN 20 MG TABLET PO SCH (21:08)
[2017-07-03] MEDS: SOTALOL 120 MG TABLET PO SCH ×2 (06:35→17:52)
[2017-07-03] MEDS: ISOSORBIDE MONONITRATE ER 60 MG TABLET PO SCH (06:35)
[2017-07-03] MEDS: ALBUTEROL/IPRATROPIUM 2.5mg-0.5mg/3ml NEB AEROSOL SCH ×4 (08:30→19:23)
[2017-07-03] MEDS: BUDESONIDE INH.SOLN 0.5mg/2ml NEB AEROSOL SCH ×2 (08:30→19:23)
--- NOTE | 2017-07-03 09:15 | Cardiology Progress Note ---
Subjective Interval history: Trevor is sitting in chair and just finished with respiratory therapy - had a breathing treatment and used acapella. Pt said he is doing good today. Pt's BP was 121/65 in sitting position this morning. Pt continues to cough with brown sputum. Pt denies dizziness or lightheadedness when standing. Pt denies chest pain, heart palpitations or shortness of air. tele-V paced reviewed meds and labs Exam Vital signs: Temperature 96.8 F 07/03/17 08:03 Pulse Rate 66 07/03/17 08:03 Respiratory Rate 22 07/03/17 08:30 Blood Pressure 121/65 07/03/17 08:03 Pulse Oximetry 94 07/03/17 08:43 Inpatient Medications: Generic Name Dose Route Start Last Admin Trade Name Freq PRN Reason Stop Dose Admin Acetaminophen 1,000 mg 06/30/17 10:25 07/02/17 23:38 Tylenol PO 1,000 mg Q6H PRN Administration Discomfort Hydrocodone Bitart/Acetaminophen 1 tab 06/30/17 13:05 06/30/17 13:10 [place] 5/325 PO 1 tab Q4H PRN Administration Pain Albuterol/Ipratropium 3 ml 06/30/17 11:00 07/03/17 08:30 Duoneb AEROSOL 3 ml RTQID ALEXA Administration Aspirin 81 mg 07/01/17 09:00 07/02/17 09:09 Ecotrin PO 81 mg DAILY ALEXA Administration Atorvastatin Calcium 20 mg 06/30/17 21:00 07/02/17 21:08 Lipitor PO 20 mg HS ALEXA Administration Budesonide 0.5 mg 07/01/17 19:00 07/03/17 08:30 Pulmicort Inhalation AEROSOL 0.5 mg RTBID ALEXA Administration Clopidogrel Bisulfate 75 mg 07/01/17 09:00 07/02/17 09:09 Plavix PO 75 mg DAILY ALEXA Administration Guaifenesin/Dextromethorphan 1 tab 06/30/17 14:24 07/02/17 21:08 Mucinex Dm PO 1 tab BID ALEXA Administration Azithromycin 500 mg/ Sodium 250 mls @ 167 mls/hr 07/01/17 07:30 07/02/17 09: 20 Chloride IV Infused Q24H ALEXA Infusion Ceftriaxone Sodium 1 g/ Sodium 50 mls @ 100 mls/hr 07/01/17 09:00 07/02/17 10 :20 Chloride IV Infused Q24H ALEXA Infusion Sodium Chloride 1,000 mls @ 50 mls/hr 06/30/17 18:00 07/02/17 15:49 Normal Saline IV 50 mls/hr .Q20H ALEXA Administration Isosorbide Mononitrate 60 mg 07/03/17 06:30 07/03/17 06:35 Imdur PO 60 mg ACB ALEXA Administration Morphine Sulfate 2 - 4 mg 06/30/17 14:24 06/30/17 14:30 Morphine Sulfate Inj IVP 4 mg Q2H PRN Administration Pain Nitroglycerin 0.4 mg 06/30/17 10:35 Nitrostat SL Q5M PRN chest pain or pressure Sodium Chloride 10 - 80 ml 06/30/17 06:13 06/30/17 06:20 Iv Flush IVF 10 ml PRN PRN Administration Flushing Sodium Phosphate 500 mg 07/03/17 08:00 K-Phos *Neutral* Tablet PO WM ALEXA Sotalol HCl 120 mg 06/30/17 17:00 07/03/17 06:35 Betapace PO 120 mg ACBID ALEXA Administration Tramadol HCl 50 - 100 mg 07/01/17 08:13 07/02/17 18:10 Ultram PO 100 mg Q6H PRN Administration Pain Discontinued Medications Generic Name Dose Route Start Last Admin Trade Name Freq PRN Reason Stop Dose Admin Aspirin 324 mg 06/30/17 06:13 06/30/17 06:18 Asa PO 06/30/17 06:14 324 mg O ONE Administration Azithromycin 500 mg/ Sodium 250 mls @ 167 mls/hr 06/30/17 07:20 06/30/17 09: 16 Chloride IV 06/30/17 08:49 Infused O ONE Infusion Ceftriaxone Sodium 500 mg/ 50 mls @ 100 mls/hr 06/30/17 09:00 06/30/17 09:50 Sodium Chloride IV Infused DAILY ALEXA Infusion Ceftriaxone Sodium 500 mg/ 50 mls @ 100 mls/hr 06/30/17 10:40 06/30/17 11:42 Sodium Chloride IV 06/30/17 11:09 Infused DAILY ONE Infusion Isosorbide Mononitrate 60 mg 07/01/17 09:00 Imdur PO DAILY ALEXA Isosorbide Mononitrate 120 mg 07/01/17 06:30 07/02/17 06:10 Imdur PO Not Given ACB ALEXA Lisinopril 5 mg 07/01/17 09:00 07/01/17 08:55 Prinivil PO 5 mg DAILY ALEXA Administration Lorazepam 0.25 - 0.5 mg 07/01/17 08:12 07/01/17 21:33 Ativan PO 0.5 mg Q6H PRN Administration Nitroglycerin 0.4 mg 06/30/17 06:13 06/30/17 06:49 Nitrostat SL 0.4 mg Q5MIN3 PRN Administration Chest pain Fluticasone/Salmeterol 1 puff 07/01/17 09:00 07/01/17 11:10 Advair Hfa ORAL INH Not Given DAILY ALEXA - Constitutional no acute distress, well developed, obese, cooperative - Routine HEENT Exam Head: Present: normocephalic, atraumatic Eye: Present: EOMI ENT: Present: mucous membranes dry - Routine Neck Exam Present: supple, full ROM, normal carotid upstroke. Absent: JVD, carotid bruit - Routine Chest/Breast/Axilla Exam Chest wall: Present: pacemaker (site well healed) - Routine Respiratory Exam Present: decreased breath sounds (LLB), crackles (minimal in LLB). Absent: rhonchi, wheezes - Routine Cardiovascular Exam Present: RRR, no murmur - Routine Abdominal Exam Present: soft, normoactive bowel sounds, non distended, non tender. Absent: organomegaly, mass - Routine Extremities Exam Present: edema (1+ pitting ankle edema bilaterally), pulses intact, normal capillary refill. Absent: cyanosis, clubbing - Routine Skin Exam Present: intact, dry. Absent: cyanosis, erythema - Routine Neurological Exam Present: alert, oriented X3, CN II-XII intact, moving all extremities, vision grossly intact, hearing grossly intact, normal speech - Routine Psychiatric Exam Present: normal affect, cooperative Results 07/03/17 05:06 07/03/17 05:06 CBC 07/02/17 07/03/17 Range/Units 17:09 05:06 WBC 15.2 H 12.3 H (4.5-11.0) T/MM3 RBC 4.10 L 3.95 L (4.50-5.90) M/MM3 Hgb 12.0 L 11.7 L (13.5-17.5) GM/DL Hct 37.4 L 36.1 L (41-53) % Plt Count 249 287 (130-400) T/MM3 Comprehensive Metabolic Panel 07/02/17 07/03/17 Range/Units 17:09 05:06 Sodium 137 139 (134-144) MEQ/L Potassium 3.9 4.0 (3.6-5) MEQ/L Chloride 103 104 (98-107) MEQ/L Carbon Dioxide 23 25 (22-30) MEQ/L BUN 32.0 H 25.0 H (9-20) MG/DL Creatinine 1.1 D 1.0 (0.8-1.5) MG/DL Glucose 148 H 104 (75-110) MG/DL Calcium 8.8 9.0 (8.4-10.2) MG/DL Albumin 3.1 L (3.5-5.0) G/DL Intake and Output 07/02/17 07/03/17 07/03/17 22:59 06:59 14:59 Intake Total 600 / 600 600 / 600 650 / 650 Balance 600 / 600 600 / 600 650 / 650 Intake: Oral 600 / 600 600 / 600 650 / 650 Other: # Voids 1 Assessment and Plan - Assessment and Plan pleuritic CP d/t LLL pneumonia abnormal ekg - EKG abnormality is most likely d/t memory phenomenon. no regional wall motion abnormality on echocardiogram, to suggest silent myocardial ischemia of that size. EKG changes on 07/01 look less prominent in comparison. no acute coronary syndrome. CAD s/p CABG PPM influenza Recommend to discontinue IVF - d/t increasing peripheral edema. Monitor pt for pulmonary congestion. If this develops, consider IV diuretics. Pt was personally seen and interviewed by Dr. Yousuf Hedrick who created the A&P. Hospital Course Summary Disclaimer: The visit summary below is not to be considered part of the above Progress Note. Hospital Course: 06/30/17 Admit, observation status, under Dr. Marrero. Later changed to inpatient. CAP/leukocytosis: PSI/PORT score 101, risk class IV with 8.2-9.3% mortality. Rocephin/Azithromycin for antimicrobial coverage. Acapella. Check urine legionella and strep pneumo antigens. Chest wall pain: Tylenol PRN (pt refuses anything stronger than Tylenol). COPD: DuoNeb QID, resume home Advair. Monitor sats closely - high risk for hypoxia. Abnormal EKG: will discuss with Dr. Hedrick. Advanced directives: Daughter (Summer) used to be DPOA but as her caregiver, she is not allowed to do both duties. He requests full resuscitation. 07/01/17 Increasing leukocytosis (25.8) and bandemia (17%). Continue Rocephin and azithromycin for CAP (Day #2). Supportive care for influenza B -- he was outside the window for treatment with Tamiflu. Substitute Pulmicort for Advair and continue DuoNeb. Urine legionella was negative; strep pneumo pending. Tramadol and low-dose Ativan PRN chest wall pain and air hunger. Slight increase in creatinine to 1.3 - continue with IVF. No evidence of failure. Dr. Hedrick on board and we appreciate his expertise in balancing fluid status.
[2017-07-03] MEDS: GUAIFENESIN/D-METHORPHAN 600mg/30mg TABLET PO SCH ×2 (10:14→22:03)
[2017-07-03] MEDS: PHOSPHORUS 250 MG TABLET PO SCH ×3 (10:14→17:52)
[2017-07-03] MEDS: CLOPIDOGREL 75 MG TABLET PO SCH (10:15)
[2017-07-03] MEDS: ASPIRIN *EC* 81 MG TABLET PO SCH (10:15)
[2017-07-03] MEDS: CEFTRIAXONE 1 G in NS 50 ML IV SCH (10:21)
[2017-07-03] MEDS: AZITHROMYCIN IV 500 MG in NS 250ml 250 ML IV SCH (11:25)
[2017-07-03] MEDS: NS 1,000 ML IV SCH (15:06)
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
[2017-07-03] MEDS: ACETAMINOPHEN 500 MG TABLET PO PRN (17:52)
[2017-07-03] MEDS: ATORVASTATIN 20 MG TABLET PO SCH (22:03)
[2017-07-04] MEDS: ACETAMINOPHEN 500 MG TABLET PO PRN ×3 (03:49→21:58)
[2017-07-04] MEDS: ISOSORBIDE MONONITRATE ER 60 MG TABLET PO SCH (05:55)
[2017-07-04] MEDS: SOTALOL 120 MG TABLET PO SCH ×2 (05:55→17:10)
[2017-07-04] MEDS: SALINE FLUSH 10ml SYRINGE IVF PRN ×2 (05:57→06:30)
[2017-07-04] MEDS ORDERED: FUROSEMIDE 40 MG/4 ML INJECTION IVP ONE (07:00)
[2017-07-04] MEDS: ALBUTEROL/IPRATROPIUM 2.5mg-0.5mg/3ml NEB AEROSOL SCH ×4 (07:35→19:26)
[2017-07-04] MEDS: AZITHROMYCIN IV 500 MG in NS 250ml 250 ML IV SCH (07:42)
[2017-07-04] MEDS: PHOSPHORUS 250 MG TABLET PO SCH ×3 (08:57→17:09)
[2017-07-04] MEDS: GUAIFENESIN/D-METHORPHAN 600mg/30mg TABLET PO SCH ×2 (08:57→21:58)
[2017-07-04] MEDS: ASPIRIN *EC* 81 MG TABLET PO SCH (08:57)
[2017-07-04] MEDS: CLOPIDOGREL 75 MG TABLET PO SCH (08:57)
[2017-07-04] MEDS: CEFTRIAXONE 1 G in NS 50 ML IV SCH (09:33)
[2017-07-04] MEDS: BUDESONIDE INH.SOLN 0.5mg/2ml NEB AEROSOL SCH ×2 (10:55→19:26)
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
[2017-07-04] MEDS: FUROSEMIDE 40 MG TABLET PO SCH (17:10)
[2017-07-04] MEDS: ATORVASTATIN 20 MG TABLET PO SCH (21:58)
[2017-07-05] MEDS: SOTALOL 120 MG TABLET PO SCH ×2 (05:30→17:22)
[2017-07-05] MEDS: ISOSORBIDE MONONITRATE ER 60 MG TABLET PO SCH (05:31)
[2017-07-05] MEDS: ALBUTEROL/IPRATROPIUM 2.5mg-0.5mg/3ml NEB AEROSOL SCH ×4 (07:32→19:37)
[2017-07-05] MEDS: BUDESONIDE INH.SOLN 0.5mg/2ml NEB AEROSOL SCH ×2 (07:32→19:38)
[2017-07-05] MEDS: CEFTRIAXONE 1 G in NS 50 ML IV SCH (10:00)
[2017-07-05] MEDS ORDERED: NS FLUSH BAG 500ml IV PRN (10:01)
[2017-07-05] MEDS: ASPIRIN *EC* 81 MG TABLET PO SCH (10:02)
[2017-07-05] MEDS: CLOPIDOGREL 75 MG TABLET PO SCH (10:02)
[2017-07-05] MEDS: PHOSPHORUS 250 MG TABLET PO SCH ×3 (10:02→17:23)
[2017-07-05] MEDS: GUAIFENESIN/D-METHORPHAN 600mg/30mg TABLET PO SCH ×2 (10:03→20:40)
[2017-07-05] MEDS: FUROSEMIDE 40 MG TABLET PO SCH ×2 (10:03→17:22)
[2017-07-05] MEDS: ACETAMINOPHEN 500 MG TABLET PO PRN ×2 (10:08→20:39)
--- NOTE | 2017-07-05 10:22 | XRay Report ---
INDICATION: pneumonia f-u PROCEDURE: CHEST 2-VIEWS UPRIGHT (PA & LAT) Encounter: Initial COMPARISON: July 02, 2017 FINDINGS: Persistent left lower lobe airspace consolidation which may be slightly worsened. Small left effusion. Perihilar airspace disease in the right lung is not significantly changed. No pneumothorax or right-sided effusion. Heart size and mediastinal contours are stable. Left pacemaker and prior CABG. Pulmonary vascularity is stable. Impression: Slight worsening in the left basilar pneumonia. .
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
[2017-07-05] MEDS: ATORVASTATIN 20 MG TABLET PO SCH (20:39)
[2017-07-06] MEDS: ACETAMINOPHEN 500 MG TABLET PO PRN ×4 (05:01→23:32)
[2017-07-06] MEDS: SOTALOL 120 MG TABLET PO SCH ×2 (06:40→17:25)
[2017-07-06] MEDS: ISOSORBIDE MONONITRATE ER 60 MG TABLET PO SCH (06:40)
[2017-07-06] MEDS: SALINE FLUSH 10ml SYRINGE IVF PRN ×2 (06:41→20:10)
[2017-07-06] MEDS: BUDESONIDE INH.SOLN 0.5mg/2ml NEB AEROSOL SCH ×2 (07:17→19:38)
[2017-07-06] MEDS: ALBUTEROL/IPRATROPIUM 2.5mg-0.5mg/3ml NEB AEROSOL SCH ×4 (07:17→19:38)
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
[2017-07-06] MEDS: PHOSPHORUS 250 MG TABLET PO SCH ×3 (09:42→17:25)
[2017-07-06] MEDS: GUAIFENESIN/D-METHORPHAN 600mg/30mg TABLET PO SCH ×2 (09:42→20:09)
[2017-07-06] MEDS: CLOPIDOGREL 75 MG TABLET PO SCH (09:42)
[2017-07-06] MEDS: FUROSEMIDE 40 MG TABLET PO SCH ×2 (09:43→17:25)
[2017-07-06] MEDS: ASPIRIN *EC* 81 MG TABLET PO SCH (09:44)
[2017-07-06] MEDS: CEFTRIAXONE 1 G in NS 50 ML IV SCH (09:44)
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
--- NOTE | 2017-07-06 19:14 | Cardiology Progress Note ---
<PhillMuriel L - Last Filed: 07/06/17 19:17> Subjective Interval history: Trevor is sitting in chair. Pt says he feels better today. Pt denies chest pain, heart palpitations, shortness of breath, dizziness/lightheadedness, cough. Pt says he is weak when he stands but only because he not been walking around very much. Pt's weight today is 103.3kg. tele-V paced reviewed meds and labs Exam Vital signs: Temperature 98.6 F 07/06/17 16:00 Pulse Rate 62 07/06/17 17:25 Respiratory Rate 18 07/06/17 16:10 Blood Pressure 117/55 07/06/17 16:00 Pulse Oximetry 91 07/06/17 16:00 Inpatient Medications: Generic Name Dose Route Start Last Admin Trade Name Freq PRN Reason Stop Dose Admin Acetaminophen 1,000 mg 06/30/17 10:25 07/06/17 17:24 Tylenol PO 1,000 mg Q6H PRN Administration Discomfort Hydrocodone Bitart/Acetaminophen 1 tab 06/30/17 13:05 06/30/17 13:10 [place] 5/325 PO 1 tab Q4H PRN Administration Pain Albuterol/Ipratropium 3 ml 06/30/17 11:00 07/06/17 16:10 Duoneb AEROSOL 3 ml RTQID ALEXA Administration Aspirin 81 mg 07/01/17 09:00 07/06/17 09:44 Ecotrin PO 81 mg DAILY ALEXA Administration Atorvastatin Calcium 20 mg 06/30/17 21:00 07/05/17 20:39 Lipitor PO 20 mg HS ALEXA Administration Budesonide 0.5 mg 07/01/17 19:00 07/06/17 07:17 Pulmicort Inhalation AEROSOL 0.5 mg RTBID ALEXA Administration Clopidogrel Bisulfate 75 mg 07/01/17 09:00 07/06/17 09:42 Plavix PO 75 mg DAILY ALEXA Administration Furosemide 40 mg 07/04/17 17:00 07/06/17 17:25 Lasix PO 40 mg 0900,1700 ALEXA Administration Guaifenesin/Dextromethorphan 1 tab 06/30/17 14:24 07/06/17 09:42 Mucinex Dm PO 1 tab BID ALEXA Administration Ceftriaxone Sodium 1 g/ Sodium 50 mls @ 100 mls/hr 07/01/17 09:00 07/06/17 10 :14 Chloride IV Infused Q24H A[facility]XA Infusion Isosorbide Mononitrate 120 mg 07/06/17 06:30 07/06/17 06:40 Imdur PO 120 mg ACB ALEXA Administration Morphine Sulfate 2 - 4 mg 06/30/17 14:24 06/30/17 14:30 Morphine Sulfate Inj IVP 4 mg Q2H PRN Administration Pain Nitroglycerin 0.4 mg 06/30/17 10:35 Nitrostat SL Q5M PRN chest pain or pressure Potassium Chloride 20 meq 07/04/17 17:30 07/06/17 17:26 K-Dur 20 Meq Tablet PO 20 meq BIDWM ALEXA Administration Sodium Chloride 10 - 80 ml 06/30/17 06:13 07/06/17 06:41 Iv Flush IVF 10 ml PRN PRN Administration Flushing Sodium Chloride 500 ml 07/05/17 10:01 07/06/17 09:45 Normal Saline IV 500 ml PRN PRN Administration Sodium Phosphate 500 mg 07/03/17 08:00 07/06/17 17:25 K-Phos *Neutral* Tablet PO 500 mg WM ALEXA Administration Sotalol HCl 120 mg 06/30/17 17:00 07/06/17 17:25 Betapace PO 120 mg ACBID ALEXA Administration Tramadol HCl 50 - 100 mg 07/01/17 08:13 07/02/17 18:10 Ultram PO 100 mg Q6H PRN Administration Pain Discontinued Medications Generic Name Dose Route Start Last Admin Trade Name Freq PRN Reason Stop Dose Admin Aspirin 324 mg 06/30/17 06:13 06/30/17 06:18 Asa PO 06/30/17 06:14 324 mg O ONE Administration Furosemide 40 mg 07/04/17 07:00 07/04/17 06:30 Lasix IVP 07/04/17 07:01 40 mg ONCE ONE Administration Azithromycin 500 mg/ Sodium 250 mls @ 167 mls/hr 06/30/17 07:20 06/30/17 09: 16 Chloride IV 06/30/17 08:49 Infused O ONE Infusion Azithromycin 500 mg/ Sodium 250 mls @ 167 mls/hr 07/01/17 07:30 07/04/17 09: 33 Chloride IV Infused Q24H [facility]XA Infusion Ceftriaxone Sodium 500 mg/ 50 mls @ 100 mls/hr 06/30/17 09:00 06/30/17 09:50 Sodium Chloride IV Infused DAILY ALEXA Infusion Ceftriaxone Sodium 500 mg/ 50 mls @ 100 mls/hr 06/30/17 10:40 06/30/17 11:42 Sodium Chloride IV 06/30/17 11:09 Infused DAILY ONE Infusion Sodium Chloride 1,000 mls @ 50 mls/hr 06/30/17 18:00 07/03/17 15:06 Normal Saline IV 50 mls/hr .Q20H ALEXA Administration Isosorbide Mononitrate 60 mg 07/01/17 09:00 Imdur PO DAILY ALEXA Isosorbide Mononitrate 120 mg 07/01/17 06:30 07/02/17 06:10 Imdur PO Not Given ACB ALEXA Isosorbide Mononitrate 60 mg 07/03/17 06:30 07/05/17 05:31 Imdur PO 60 mg ACB ALEXA Administration Lisinopril 5 mg 07/01/17 09:00 07/01/17 08:55 Prinivil PO 5 mg DAILY ALEXA Administration Lorazepam 0.25 - 0.5 mg 07/01/17 08:12 07/01/17 21:33 Ativan PO 0.5 mg Q6H PRN Administration Nitroglycerin 0.4 mg 06/30/17 06:13 06/30/17 06:49 Nitrostat SL 0.4 mg Q5MIN3 PRN Administration Chest pain Potassium Chloride 20 meq 07/05/17 12:30 07/05/17 12:41 K-Dur 20 Meq Tablet PO 07/05/17 12:31 20 meq O ONE Administration Potassium Chloride 20 meq 07/06/17 12:30 07/06/17 13:07 K-Dur 20 Meq Tablet PO 07/06/17 12:31 20 meq O ONE Administration Fluticasone/Salmeterol 1 puff 07/01/17 09:00 07/01/17 11:10 Advair Hfa ORAL INH Not Given DAILY ALEXA - Constitutional no acute distress, mild distress, obese, cooperative - Routine HEENT Exam Head: Present: normocephalic, atraumatic Eye: Present: EOMI ENT: Present: mucous membranes dry - Routine Neck Exam Present: supple, full ROM, normal carotid upstroke. Absent: JVD, carotid bruit - Routine Respiratory Exam Present: decreased breath sounds (LLB). Absent: rhonchi, wheezes, crackles - Routine Cardiovascular Exam Present: RRR, no murmur - Routine Abdominal Exam Present: soft, normoactive bowel sounds, non distended, non tender. Absent: organomegaly, mass - Routine Extremities Exam Present: edema (2-3+ bilateral leg edema), pulses intact, normal capillary refill. Absent: cyanosis, clubbing - Routine Skin Exam Present: intact, dry. Absent: cyanosis, erythema - Routine Neurological Exam Present: alert, oriented X3, CN II-XII intact, moving all extremities, vision grossly intact, hearing grossly intact, normal speech. Absent: sensory deficit , motor deficit, facial asymmetry - Routine Psychiatric Exam Present: normal affect, cooperative Results 07/06/17 04:03 07/06/17 04:03 CBC 07/06/17 Range/Units 04:03 WBC 11.3 H (4.5-11.0) T/MM3 RBC 3.79 L (4.50-5.90) M/MM3 Hgb 11.2 L (13.5-17.5) GM/DL Hct 34.4 L (41-53) % Plt Count 416 H (130-400) T/MM3 Neut # (Auto) Not performed Lymph # (Auto) Not performed [place] # (Auto) Not performed Eos # (Auto) Not performed Baso # (Auto) Not performed Comprehensive Metabolic Panel 07/06/17 Range/Units 04:03 Sodium 142 (134-144) MEQ/L Potassium 3.5 L (3.6-5) MEQ/L Chloride 103 (98-107) MEQ/L Carbon Dioxide 28 (22-30) MEQ/L BUN 18.0 (9-20) MG/DL Creatinine 0.9 (0.8-1.5) mg/dL Glucose 104 (75-110) MG/DL Calcium 8.8 (8.4-10.2) MG/DL Intake and Output 07/06/17 07/06/17 07/06/17 06:59 14:59 22:59 Intake Total 850 / 850 Output Total 300 / 300 Balance 550 / 550 Intake: IV 50 / 50 Ceftriaxone 1 g In Ns 50 ml @ 50 / 50 100 mls/hr IV Q24H [facility] Rx#: [id number] Oral 800 / 800 Output: Urine 300 / 300 Other: Urine Appearance Clear Urine Color Dark Yellow Urine Odor Normal # Voids 1 Weight 103.3 kg Patient Weight 07/07/17 06:59 Weight 103.3 kg - Imaging and Cardiology Imaging & Cardiology Narrative: CXR 07/06/17 Impression: Grossly unchanged left lower lobe airspace consolidation again consistent with pneumonia. Assessment and Plan - Assessment and Plan pleuritic CP d/t LLL pneumonia abnormal ekg - EKG abnormality is most likely d/t memory phenomenon. no regional wall motion abnormality on echocardiogram, to suggest silent myocardial ischemia of that size. EKG changes on 07/01 look less prominent in comparison. no acute coronary syndrome. CAD s/p CABG PPM influenza Agree with short term PO Lasix x 3-7 days. Pt was personally seen and interviewed by Dr. Yousuf Hedrick who created the A&P. Hospital Course Summary Disclaimer: The visit summary below is not to be considered part of the above Progress Note. Hospital Course: 06/30/17 Admit, observation status, under Dr. Marrero. Later changed to inpatient. CAP/leukocytosis: PSI/PORT score 101, risk class IV with 8.2-9.3% mortality. Rocephin/Azithromycin for antimicrobial coverage. Acapella. Check urine legionella and strep pneumo antigens. Chest wall pain: Tylenol PRN (pt refuses anything stronger than Tylenol). COPD: DuoNeb QID, resume home Advair. Monitor sats closely - high risk for hypoxia. Abnormal EKG: will discuss with Dr. Hedrick. Advanced directives: Daughter (Summer) used to be DPOA but as her caregiver, she is not allowed to do both duties. He requests full resuscitation. 07/01/17 Increasing leukocytosis (25.8) and bandemia (17%). Continue Rocephin and azithromycin for CAP (Day #2). Supportive care for influenza B -- he was outside the window for treatment with Tamiflu. Substitute Pulmicort for Advair and continue DuoNeb. Urine legionella was negative; strep pneumo pending. Tramadol and low-dose Ativan PRN chest wall pain and air hunger. Slight increase in creatinine to 1.3 - continue with IVF. No evidence of failure. Dr. Hedrick on board and we appreciate his expertise in balancing fluid status. 07/02/17 Continue Rocephin and azithromycin for CAP (Day #3). Substitute Pulmicort for Advair and continue DuoNeb. Check CBC with differential and basic metabolic profile today. Try discontinuing Ativan because of hallucinations. If hallucinations worsen, discontinue tramadol. Continue IV fluids for now. Await CBC and basic metabolic profile. The patient's pacemaker was adjusted today. Discussed with Dr. Hedrick. Lisinopril is on hold for hypotension. Restart Imdur 60 mg every morning. When blood pressure is better, will need to increase his Imdur back to 120 mg which she has needed to prevent angina, per Dr. Hedrick. Chest x-ray reviewed today. There is a new small left parapneumonic effusion. We 'll need to monitor closely. 07/03/17 Continue Rocephin and azithromycin for CAP (Day #4). Continue Pulmicort and DuoNeb. Repeat chest x-ray in a.m. Ativan was discontinued because of hallucinations. This has improved. He reports the pain in the left chest is much better. Has not used tramadol since last evening. Discontinue IV fluids due to increasing peripheral edema. Monitor for pulmonary congestion, consider IV Lasix per Dr. Hedrick. Lisinopril remains on hold for hypotension. Blood pressures have improved, but are not elevated at this time. Phosphorus was low, supplementation initiated this a.m. 07/04/17 Continue Rocephin for CAP (Day #5); can discontinue azithromycin as course completed. Continue Pulmicort and DuoNeb. CXR reviewed. Ativan related hallucinations, resolved. Pleuritic chest pain, resolved. PRN tramadol. Increasing peripheral edema. Lasix 40mg IV given this am x1. Add BID PO Lasix 40mg, KCL. pEF. Monitor. Holding lisinopril for now. BP is normal for now. Imdur 60 mg resumed. Increase to 120mg when BP will support. (per DR. Hedrick). Generalized weakness- consult PT. Will have nursing ambulate in halls QID. May need rehab upon dismissal. 07/05/17 Continue Rocephin for pulmonary coverage - azithromycin course completed. Continue Pulmicort and DuoNeb. Continue Lasix 40mg po BID to help edema - additional potassium given as potassium decrease to 3.2. Magnesium normal at 2.0. Holding lisinopril for now. BP is normal for now. Increased Imdur to 120 mg - blood pressure stable. Encourage continued ambulation to help improve strength. 07/06/17 Nocturnal hypoxia last night (room air sat 88%) -- will obtain nocturnal oximetry tonight. CXR repeated and personally reviewed - persistent LLL infiltrate. Continue Rocephin. Legionella and strep pneumo ag. were neg. Continue Lasix 40 mg BID; will discuss ongoing diuresis with Dr. Hedrick. [place] 3.5: extra potassium ordered Platelets still elevated but improved from yesterday (416). WBC continues to trend down. Encourage ambulation. PT/OT evals done on 07/01/17 -- no IP therapy needed, safe to return home. <Shirley Hedrick - Last Filed: 07/06/17 22:45> Exam Vital signs: Temperature 98.6 F 07/06/17 16:00 Pulse Rate 72 07/06/17 20:03 Respiratory Rate 20 07/06/17 20:03 Blood Pressure 125/52 07/06/17 20:03 Pulse Oximetry 93 07/06/17 20:03 Inpatient Medications: Generic Name Dose Route Start Last Admin Trade Name Freq PRN Reason Stop Dose Admin Acetaminophen 1,000 mg 06/30/17 10:25 07/06/17 17:24 Tylenol PO 1,000 mg Q6H PRN Administration Discomfort Hydrocodone Bitart/Acetaminophen 1 tab 06/30/17 13:05 06/30/17 13:10 [place] 5/325 PO 1 tab Q4H PRN Administration Pain Albuterol/Ipratropium 3 ml 06/30/17 11:00 07/06/17 19:38 Duoneb AEROSOL 3 ml RTQID ALEXA Administration Aspirin 81 mg 07/01/17 09:00 07/06/17 09:44 Ecotrin PO 81 mg DAILY ALEXA Administration Atorvastatin Calcium 20 mg 06/30/17 21:00 07/06/17 21:28 Lipitor PO 20 mg HS ALEXA Administration Budesonide 0.5 mg 07/01/17 19:00 07/06/17 19:38 Pulmicort Inhalation AEROSOL 0.5 mg RTBID ALEXA Administration Clopidogrel Bisulfate 75 mg 07/01/17 09:00 07/06/17 09:42 Plavix PO 75 mg DAILY ALEXA Administration Furosemide 40 mg 07/04/17 17:00 07/06/17 17:25 Lasix PO 40 mg 0900,1700 ALEXA Administration Guaifenesin/Dextromethorphan 1 tab 06/30/17 14:24 07/06/17 20:09 Mucinex Dm PO 1 tab BID ALEXA Administration Ceftriaxone Sodium 1 g/ Sodium 50 mls @ 100 mls/hr 07/01/17 09:00 07/06/17 10 :14 Chloride IV Infused Q24H [facility] Infusion Isosorbide Mononitrate 120 mg 07/06/17 06:30 07/06/17 06:40 Imdur PO 120 mg ACB ALEXA Administration Morphine Sulfate 2 - 4 mg 06/30/17 14:24 06/30/17 14:30 Morphine Sulfate Inj IVP 4 mg Q2H PRN Administration Pain Nitroglycerin 0.4 mg 06/30/17 10:35 Nitrostat SL Q5M PRN chest pain or pressure Potassium Chloride 20 meq 07/04/17 17:30 07/06/17 17:26 K-Dur 20 Meq Tablet PO 20 meq BIDWM ALEXA Administration Sodium Chloride 10 - 80 ml 06/30/17 06:13 07/06/17 20:10 Iv Flush IVF 10 ml PRN PRN Administration Flushing Sodium Chloride 500 ml 07/05/17 10:01 07/06/17 09:45 Normal Saline IV 500 ml PRN PRN Administration Sodium Phosphate 500 mg 07/03/17 08:00 07/06/17 17:25 K-Phos *Neutral* Tablet PO 500 mg WM ALEXA Administration Sotalol HCl 120 mg 06/30/17 17:00 07/06/17 17:25 Betapace PO 120 mg ACBID ALEXA Administration Tramadol HCl 50 - 100 mg 07/01/17 08:13 07/02/17 18:10 Ultram PO 100 mg Q6H PRN Administration Pain Discontinued Medications Generic Name Dose Route Start Last Admin Trade Name Freq PRN Reason Stop Dose Admin Aspirin 324 mg 06/30/17 06:13 06/30/17 06:18 Asa PO 06/30/17 06:14 324 mg O ONE Administration Furosemide 40 mg 07/04/17 07:00 07/04/17 06:30 Lasix IVP 07/04/17 07:01 40 mg ONCE ONE Administration Azithromycin 500 mg/ Sodium 250 mls @ 167 mls/hr 06/30/17 07:20 06/30/17 09: 16 Chloride IV 06/30/17 08:49 Infused O ONE Infusion Azithromycin 500 mg/ Sodium 250 mls @ 167 mls/hr 07/01/17 07:30 07/04/17 09: 33 Chloride IV Infused Q24H [facility] Infusion Ceftriaxone Sodium 500 mg/ 50 mls @ 100 mls/hr 06/30/17 09:00 06/30/17 09:50 Sodium Chloride IV Infused DAILY ALEXA Infusion Ceftriaxone Sodium 500 mg/ 50 mls @ 100 mls/hr 06/30/17 10:40 06/30/17 11:42 Sodium Chloride IV 06/30/17 11:09 Infused DAILY ONE Infusion Sodium Chloride 1,000 mls @ 50 mls/hr 06/30/17 18:00 07/03/17 15:06 Normal Saline IV 50 mls/hr .Q20H [facility] Administration Isosorbide Mononitrate 60 mg 07/01/17 09:00 Imdur PO DAILY ALEXA Isosorbide Mononitrate 120 mg 07/01/17 06:30 07/02/17 06:10 Imdur PO Not Given ACB ALEXA Isosorbide Mononitrate 60 mg 07/03/17 06:30 07/05/17 05:31 Imdur PO 60 mg ACB ALEXA Administration Lisinopril 5 mg 07/01/17 09:00 07/01/17 08:55 Prinivil PO 5 mg DAILY ALEXA Administration Lorazepam 0.25 - 0.5 mg 07/01/17 08:12 07/01/17 21:33 Ativan PO 0.5 mg Q6H PRN Administration Nitroglycerin 0.4 mg 06/30/17 06:13 06/30/17 06:49 Nitrostat SL 0.4 mg Q5MIN3 PRN Administration Chest pain Potassium Chloride 20 meq 07/05/17 12:30 07/05/17 12:41 K-Dur 20 Meq Tablet PO 07/05/17 12:31 20 meq O ONE Administration Potassium Chloride 20 meq 07/06/17 12:30 07/06/17 13:07 K-Dur 20 Meq Tablet PO 07/06/17 12:31 20 meq O ONE Administration Fluticasone/Salmeterol 1 puff 07/01/17 09:00 07/01/17 11:10 Advair Hfa ORAL INH Not Given DAILY ALEXA Results 07/06/17 04:03 07/06/17 04:03 CBC 07/06/17 Range/Units 04:03 WBC 11.3 H (4.5-11.0) T/MM3 RBC 3.79 L (4.50-5.90) M/MM3 Hgb 11.2 L (13.5-17.5) GM/DL Hct 34.4 L (41-53) % Plt Count 416 H (130-400) T/MM3 Neut # (Auto) Not performed Lymph # (Auto) Not performed [place] # (Auto) Not performed Eos # (Auto) Not performed Baso # (Auto) Not performed Comprehensive Metabolic Panel 07/06/17 Range/Units 04:03 Sodium 142 (134-144) MEQ/L Potassium 3.5 L (3.6-5) MEQ/L Chloride 103 (98-107) MEQ/L Carbon Dioxide 28 (22-30) MEQ/L BUN 18.0 (9-20) MG/DL Creatinine 0.9 (0.8-1.5) mg/dL Glucose 104 (75-110) MG/DL Calcium 8.8 (8.4-10.2) MG/DL Intake and Output 07/06/17 07/06/17 07/06/17 06:59 14:59 22:59 Intake Total 850 / 850 500 / 500 Output Total 300 / 300 500 / 500 Balance 550 / 550 0 / 0 Intake: IV 50 / 50 Ceftriaxone 1 g In Ns 50 ml @ 50 / 50 100 mls/hr IV Q24H [facility] Rx#: [id number] Oral 800 / 800 500 / 500 Output: Urine 300 / 300 500 / 500 Other: Urine Appearance Clear Clear Urine Color Dark Yellow Dark Yellow Urine Odor Normal # Voids 1 # Bowel Movements 1 Weight 103.3 kg Patient Weight 07/07/17 06:59 Weight 103.3 kg Assessment and Plan - Attestation Attestation Narrative: 07/06/17 22:45 seen and examined and I agree with the above Hospital Course Summary Disclaimer: The visit summary below is not to be considered part of the above Progress Note.
[2017-07-06] MEDS: ATORVASTATIN 20 MG TABLET PO SCH (21:28)
[2017-07-07] MEDS: SOTALOL 120 MG TABLET PO SCH (05:45)
[2017-07-07] MEDS: ISOSORBIDE MONONITRATE ER 60 MG TABLET PO SCH (05:46)
[2017-07-07 07:23] VITALS: TEMP 97.7
[2017-07-07] MEDS: ALBUTEROL/IPRATROPIUM 2.5mg-0.5mg/3ml NEB AEROSOL SCH ×3 (09:19→14:50)
--- NOTE | 2017-07-07 09:43 | Cardiology Progress Note ---
<PhillEfraínMuriel L - Last Filed: 07/07/17 16:27> Subjective Interval history: Trevor is sitting in chair. Pt says he is doing good today, but is ready to go home. Pt says when he gets home it will be easier to elevate his legs to help with edema. Pt denies chest pain, chest pressure, heart palpitations, shortness of breath, dizziness/lightheadedness, cough. Pt's weight today is 103kg. tele-V paced reviewed meds and labs Exam Vital signs: Temperature 97.7 F 07/07/17 07:20 Pulse Rate 60 07/07/17 07:20 Respiratory Rate 18 07/07/17 07:20 Blood Pressure 120/60 07/07/17 07:20 Pulse Oximetry 92 07/07/17 07:20 Inpatient Medications: Generic Name Dose Route Start Last Admin Trade Name Freq PRN Reason Stop Dose Admin Acetaminophen 1,000 mg 06/30/17 10:25 07/06/17 23:32 Tylenol PO 1,000 mg Q6H PRN Administration Discomfort Hydrocodone Bitart/Acetaminophen 1 tab 06/30/17 13:05 06/30/17 13:10 Eagle 5/325 PO 1 tab Q4H PRN Administration Pain Albuterol/Ipratropium 3 ml 06/30/17 11:00 07/07/17 09:19 Duoneb AEROSOL Not Given RTQID ALEXA Aspirin 81 mg 07/01/17 09:00 07/06/17 09:44 Ecotrin PO 81 mg DAILY ALEXA Administration Atorvastatin Calcium 20 mg 06/30/17 21:00 07/06/17 21:28 Lipitor PO 20 mg HS ALEXA Administration Budesonide 0.5 mg 07/01/17 19:00 07/06/17 19:38 Pulmicort Inhalation AEROSOL 0.5 mg RTBID ALEXA Administration Clopidogrel Bisulfate 75 mg 07/01/17 09:00 07/06/17 09:42 Plavix PO 75 mg DAILY ALEXA Administration Furosemide 40 mg 07/04/17 17:00 07/06/17 17:25 Lasix PO 40 mg 0900,1700 ALEXA Administration Guaifenesin/Dextromethorphan 1 tab 06/30/17 14:24 07/06/17 20:09 Mucinex Dm PO 1 tab BID ALEXA Administration Ceftriaxone Sodium 1 g/ Sodium 50 mls @ 100 mls/hr 07/01/17 09:00 07/06/17 10 :14 Chloride IV Infused Q24H ALEXA Infusion Isosorbide Mononitrate 120 mg 07/06/17 06:30 07/07/17 05:46 Imdur PO 120 mg ACB ALEXA Administration Morphine Sulfate 2 - 4 mg 06/30/17 14:24 06/30/17 14:30 Morphine Sulfate Inj IVP 4 mg Q2H PRN Administration Pain Nitroglycerin 0.4 mg 06/30/17 10:35 Nitrostat SL Q5M PRN chest pain or pressure Potassium Chloride 20 meq 07/04/17 17:30 07/06/17 17:26 K-Dur 20 Meq Tablet PO 20 meq BIDWM ALEXA Administration Sodium Chloride 10 - 80 ml 06/30/17 06:13 07/06/17 20:10 Iv Flush IVF 10 ml PRN PRN Administration Flushing Sodium Chloride 500 ml 07/05/17 10:01 07/06/17 09:45 Normal Saline IV 500 ml PRN PRN Administration Sodium Phosphate 500 mg 07/03/17 08:00 07/06/17 17:25 K-Phos *Neutral* Tablet PO 500 mg WM ALEXA Administration Sotalol HCl 120 mg 06/30/17 17:00 07/07/17 05:45 Betapace PO 120 mg ACBID ALEXA Administration Tramadol HCl 50 - 100 mg 07/01/17 08:13 07/02/17 18:10 Ultram PO 100 mg Q6H PRN Administration Pain Discontinued Medications Generic Name Dose Route Start Last Admin Trade Name Freq PRN Reason Stop Dose Admin Aspirin 324 mg 06/30/17 06:13 06/30/17 06:18 Asa PO 06/30/17 06:14 324 mg O ONE Administration Furosemide 40 mg 07/04/17 07:00 07/04/17 06:30 Lasix IVP 07/04/17 07:01 40 mg ONCE ONE Administration Azithromycin 500 mg/ Sodium 250 mls @ 167 mls/hr 06/30/17 07:20 06/30/17 09: 16 Chloride IV 06/30/17 08:49 Infused O ONE Infusion Azithromycin 500 mg/ Sodium 250 mls @ 167 mls/hr 07/01/17 07:30 07/04/17 09: 33 Chloride IV Infused Q24H ALEXA Infusion Ceftriaxone Sodium 500 mg/ 50 mls @ 100 mls/hr 06/30/17 09:00 06/30/17 09:50 Sodium Chloride IV Infused DAILY ALEXA Infusion Ceftriaxone Sodium 500 mg/ 50 mls @ 100 mls/hr 06/30/17 10:40 06/30/17 11:42 Sodium Chloride IV 06/30/17 11:09 Infused DAILY ONE Infusion Sodium Chloride 1,000 mls @ 50 mls/hr 06/30/17 18:00 07/03/17 15:06 Normal Saline IV 50 mls/hr .Q20H ALEXA Administration Isosorbide Mononitrate 60 mg 07/01/17 09:00 Imdur PO DAILY ALEXA Isosorbide Mononitrate 120 mg 07/01/17 06:30 07/02/17 06:10 Imdur PO Not Given ACB ALEXA Isosorbide Mononitrate 60 mg 07/03/17 06:30 07/05/17 05:31 Imdur PO 60 mg ACB ALEXA Administration Lisinopril 5 mg 07/01/17 09:00 07/01/17 08:55 Prinivil PO 5 mg DAILY ALEXA Administration Lorazepam 0.25 - 0.5 mg 07/01/17 08:12 07/01/17 21:33 Ativan PO 0.5 mg Q6H PRN Administration Nitroglycerin 0.4 mg 06/30/17 06:13 06/30/17 06:49 Nitrostat SL 0.4 mg Q5MIN3 PRN Administration Chest pain Potassium Chloride 20 meq 07/05/17 12:30 07/05/17 12:41 K-Dur 20 Meq Tablet PO 07/05/17 12:31 20 meq O ONE Administration Potassium Chloride 20 meq 07/06/17 12:30 07/06/17 13:07 K-Dur 20 Meq Tablet PO 07/06/17 12:31 20 meq O ONE Administration Fluticasone/Salmeterol 1 puff 07/01/17 09:00 07/01/17 11:10 Advair Hfa ORAL INH Not Given DAILY ALEXA - Constitutional no acute distress, well developed, obese, cooperative - Routine HEENT Exam Head: Present: normocephalic, atraumatic Eye: Present: EOMI ENT: Present: mucous membranes dry - Routine Neck Exam Present: supple, full ROM, normal carotid upstroke. Absent: JVD, carotid bruit - Routine Chest/Breast/Axilla Exam Chest wall: Present: pacemaker (site well healed) - Routine Respiratory Exam Present: CTA bilaterally. Absent: rhonchi, wheezes, crackles - Routine Cardiovascular Exam Present: RRR, no murmur - Routine Abdominal Exam Present: soft, normoactive bowel sounds, non distended, non tender. Absent: organomegaly, mass - Routine Extremities Exam Present: edema (2-3+ bilateral leg edema), pulses intact, normal capillary refill. Absent: cyanosis, clubbing - Routine Skin Exam Present: intact, dry. Absent: cyanosis, erythema - Routine Neurological Exam Present: alert, oriented X3, CN II-XII intact, moving all extremities, vision grossly intact, hearing grossly intact, normal speech. Absent: sensory deficit , motor deficit, facial asymmetry - Routine Psychiatric Exam Present: normal affect, normal thought process, cooperative, good insight, good judgment Results 07/07/17 04:45 07/07/17 04:45 CBC 07/07/17 Range/Units 04:45 WBC 10.7 (4.5-11.0) T/MM3 RBC 3.81 L (4.50-5.90) M/MM3 Hgb 11.2 L (13.5-17.5) GM/DL Hct 34.7 L (41-53) % Plt Count 487 H (130-400) T/MM3 Neut # (Auto) Not performed Lymph # (Auto) Not performed [place] # (Auto) Not performed Eos # (Auto) Not performed Baso # (Auto) Not performed Comprehensive Metabolic Panel 07/07/17 Range/Units 04:45 Sodium 141 (134-144) MEQ/L Potassium 3.7 (3.6-5) MEQ/L Chloride 102 (98-107) MEQ/L Carbon Dioxide 29 (22-30) MEQ/L BUN 19.0 (9-20) MG/DL Creatinine 0.9 (0.8-1.5) mg/dL Glucose 104 (75-110) MG/DL Calcium 8.8 (8.4-10.2) MG/DL Intake and Output 07/06/17 07/07/17 07/07/17 22:59 06:59 14:59 Intake Total 500 / 500 Output Total 500 / 500 275 / 275 Balance 0 / 0 -275 / -275 Intake: Oral 500 / 500 Output: Urine 500 / 500 275 / 275 Other: Urine Appearance Clear Clear Urine Color Dark Yellow Dark Yellow # Bowel Movements 1 Weight 103 kg Patient Weight 07/08/17 06:59 Weight 103 kg Assessment and Plan - Assessment and Plan pleuritic CP d/t LLL pneumonia abnormal ekg - EKG abnormality is most likely d/t memory phenomenon. no regional wall motion abnormality on echocardiogram, to suggest silent myocardial ischemia of that size. EKG changes on 07/01 look less prominent in comparison. no acute coronary syndrome. CAD s/p CABG PPM influenza Agree with short term PO Lasix x 3-7 days. F/u in office with scheduled appt time in August. Pt was personally seen and interviewed by Dr. Yousuf Hedrick who created the A&P. Hospital Course Summary Disclaimer: The visit summary below is not to be considered part of the above Progress Note. Hospital Course: 06/30/17 Admit, observation status, under Dr. Marrero. Later changed to inpatient. CAP/leukocytosis: PSI/PORT score 101, risk class IV with 8.2-9.3% mortality. Rocephin/Azithromycin for antimicrobial coverage. Acapella. Check urine legionella and strep pneumo antigens. Chest wall pain: Tylenol PRN (pt refuses anything stronger than Tylenol). COPD: DuoNeb QID, resume home Advair. Monitor sats closely - high risk for hypoxia. Abnormal EKG: will discuss with Dr. Hedrick. Advanced directives: Daughter (Summer) used to be DPOA but as her caregiver, she is not allowed to do both duties. He requests full resuscitation. 07/01/17 Increasing leukocytosis (25.8) and bandemia (17%). Continue Rocephin and azithromycin for CAP (Day #2). Supportive care for influenza B -- he was outside the window for treatment with Tamiflu. Substitute Pulmicort for Advair and continue DuoNeb. Urine legionella was negative; strep pneumo pending. Tramadol and low-dose Ativan PRN chest wall pain and air hunger. Slight increase in creatinine to 1.3 - continue with IVF. No evidence of failure. Dr. Hedrick on board and we appreciate his expertise in balancing fluid status. 07/02/17 Continue Rocephin and azithromycin for CAP (Day #3). Substitute Pulmicort for Advair and continue DuoNeb. Check CBC with differential and basic metabolic profile today. Try discontinuing Ativan because of hallucinations. If hallucinations worsen, discontinue tramadol. Continue IV fluids for now. Await CBC and basic metabolic profile. The patient's pacemaker was adjusted today. Discussed with Dr. Hedrick. Lisinopril is on hold for hypotension. Restart Imdur 60 mg every morning. When blood pressure is better, will need to increase his Imdur back to 120 mg which she has needed to prevent angina, per Dr. Hedrick. Chest x-ray reviewed today. There is a new small left parapneumonic effusion. We 'll need to monitor closely. 07/03/17 Continue Rocephin and azithromycin for CAP (Day #4). Continue Pulmicort and DuoNeb. Repeat chest x-ray in a.m. Ativan was discontinued because of hallucinations. This has improved. He reports the pain in the left chest is much better. Has not used tramadol since last evening. Discontinue IV fluids due to increasing peripheral edema. Monitor for pulmonary congestion, consider IV Lasix per Dr. Hedrick. Lisinopril remains on hold for hypotension. Blood pressures have improved, but are not elevated at this time. Phosphorus was low, supplementation initiated this a.m. 07/04/17 Continue Rocephin for CAP (Day #5); can discontinue azithromycin as course completed. Continue Pulmicort and DuoNeb. CXR reviewed. Ativan related hallucinations, resolved. Pleuritic chest pain, resolved. PRN tramadol. Increasing peripheral edema. Lasix 40mg IV given this am x1. Add BID PO Lasix 40mg, KCL. pEF. Monitor. Holding lisinopril for now. BP is normal for now. Imdur 60 mg resumed. Increase to 120mg when BP will support. (per DR. Hedrick). Generalized weakness- consult PT. Will have nursing ambulate in halls QID. May need rehab upon dismissal. 07/05/17 Continue Rocephin for pulmonary coverage - azithromycin course completed. Continue Pulmicort and DuoNeb. Continue Lasix 40mg po BID to help edema - additional potassium given as potassium decrease to 3.2. Magnesium normal at 2.0. Holding lisinopril for now. BP is normal for now. Increased Imdur to 120 mg - blood pressure stable. Encourage continued ambulation to help improve strength. 07/06/17 Nocturnal hypoxia last night (room air sat 88%) -- will obtain nocturnal oximetry tonight. CXR repeated and personally reviewed - persistent LLL infiltrate. Continue Rocephin. Legionella and strep pneumo ag. were neg. Continue Lasix 40 mg BID; will discuss ongoing diuresis with Dr. Hedrick. K 3.5: extra potassium ordered Platelets still elevated but improved from yesterday (416). WBC continues to trend down. Encourage ambulation. PT/OT evals done on 07/01/17 -- no IP therapy needed, safe to return home. <Shirley Hedrick - Last Filed: 07/08/17 14:33> Exam Vital signs: Temperature 97.7 F 07/07/17 07:20 Pulse Rate 62 07/07/17 15:00 Respiratory Rate 20 07/07/17 15:00 Blood Pressure 125/61 07/07/17 15:00 Pulse Oximetry 91 07/07/17 15:00 Inpatient Medications: Discontinued Medications Generic Name Dose Route Start Last Admin Trade Name Freq PRN Reason Stop Dose Admin Acetaminophen 1,000 mg 06/30/17 10:25 07/07/17 12:25 Tylenol PO 1,000 mg Q6H PRN Administration Discomfort Hydrocodone Bitart/Acetaminophen 1 tab 06/30/17 13:05 06/30/17 13:10 Eagle 5/325 PO 1 tab Q4H PRN Administration Pain Albuterol/Ipratropium 3 ml 06/30/17 11:00 07/07/17 14:50 Duoneb AEROSOL 3 ml RTQID ALEXA Administration Aspirin 324 mg 06/30/17 06:13 06/30/17 06:18 Asa PO 06/30/17 06:14 324 mg O ONE Administration Aspirin 81 mg 07/01/17 09:00 07/07/17 10:52 Ecotrin PO 81 mg DAILY ALEXA Administration Atorvastatin Calcium 20 mg 06/30/17 21:00 07/06/17 21:28 Lipitor PO 20 mg HS ALEXA Administration Budesonide 0.5 mg 07/01/17 19:00 07/07/17 11:03 Pulmicort Inhalation AEROSOL 0.5 mg RTBID ALEXA Administration Clopidogrel Bisulfate 75 mg 07/01/17 09:00 07/07/17 10:52 Plavix PO 75 mg DAILY ALEXA Administration Furosemide 40 mg 07/04/17 07:00 07/04/17 06:30 Lasix IVP 07/04/17 07:01 40 mg ONCE ONE Administration Furosemide 40 mg 07/04/17 17:00 07/07/17 10:52 Lasix PO 40 mg 0900,1700 ALEXA Administration Guaifenesin/Dextromethorphan 1 tab 06/30/17 14:24 07/07/17 10:52 Mucinex Dm PO 1 tab BID ALEXA Administration Azithromycin 500 mg/ Sodium 250 mls @ 167 mls/hr 06/30/17 07:20 06/30/17 09: 16 Chloride IV 06/30/17 08:49 Infused O ONE Infusion Azithromycin 500 mg/ Sodium 250 mls @ 167 mls/hr 07/01/17 07:30 07/04/17 09: 33 Chloride IV Infused Q24H ALEXA Infusion Ceftriaxone Sodium 500 mg/ 50 mls @ 100 mls/hr 06/30/17 09:00 06/30/17 09:50 Sodium Chloride IV Infused DAILY ALEXA Infusion Ceftriaxone Sodium 1 g/ Sodium 50 mls @ 100 mls/hr 07/01/17 09:00 07/07/17 11 :22 Chloride IV Infused Q24H ALEXA Infusion Ceftriaxone Sodium 500 mg/ 50 mls @ 100 mls/hr 06/30/17 10:40 06/30/17 11:42 Sodium Chloride IV 06/30/17 11:09 Infused DAILY ONE Infusion Sodium Chloride 1,000 mls @ 50 mls/hr 06/30/17 18:00 07/03/17 15:06 Normal Saline IV 50 mls/hr .Q20H ALEXA Administration Isosorbide Mononitrate 60 mg 07/01/17 09:00 Imdur PO DAILY ALEXA Isosorbide Mononitrate 120 mg 07/01/17 06:30 07/02/17 06:10 Imdur PO Not Given ACB ALEXA Isosorbide Mononitrate 60 mg 07/03/17 06:30 07/05/17 05:31 Imdur PO 60 mg ACB ALEXA Administration Isosorbide Mononitrate 120 mg 07/06/17 06:30 07/07/17 05:46 Imdur PO 120 mg ACB ALEXA Administration Lisinopril 5 mg 07/01/17 09:00 07/01/17 08:55 Prinivil PO 5 mg DAILY ALEXA Administration Lorazepam 0.25 - 0.5 mg 07/01/17 08:12 07/01/17 21:33 Ativan PO 0.5 mg Q6H PRN Administration Morphine Sulfate 2 - 4 mg 06/30/17 14:24 06/30/17 14:30 Morphine Sulfate Inj IVP 4 mg Q2H PRN Administration Pain Nitroglycerin 0.4 mg 06/30/17 06:13 06/30/17 06:49 Nitrostat SL 0.4 mg Q5MIN3 PRN Administration Chest pain Nitroglycerin 0.4 mg 06/30/17 10:35 Nitrostat SL Q5M PRN chest pain or pressure Potassium Chloride 20 meq 07/04/17 17:30 07/07/17 10:52 K-Dur 20 Meq Tablet PO 20 meq BIDWM ALEXA Administration Potassium Chloride 20 meq 07/05/17 12:30 07/05/17 12:41 K-Dur 20 Meq Tablet PO 07/05/17 12:31 20 meq O ONE Administration Potassium Chloride 20 meq 07/06/17 12:30 07/06/17 13:07 K-Dur 20 Meq Tablet PO 07/06/17 12:31 20 meq O ONE Administration Fluticasone/Salmeterol 1 puff 07/01/17 09:00 07/01/17 11:10 Advair Hfa ORAL INH Not Given DAILY [facility] Sodium Chloride 10 - 80 ml 06/30/17 06:13 07/07/17 12:22 Iv Flush IVF 10 ml PRN PRN Administration Flushing Sodium Chloride 500 ml 07/05/17 10:01 07/06/17 09:45 Normal Saline IV 500 ml PRN PRN Administration Sodium Phosphate 500 mg 07/03/17 08:00 07/07/17 10:51 K-Phos *Neutral* Tablet PO 500 mg WM ALEXA Administration Sotalol HCl 120 mg 06/30/17 17:00 07/07/17 05:45 Betapace PO 120 mg ACBID ALEXA Administration Tramadol HCl 50 - 100 mg 07/01/17 08:13 07/02/17 18:10 Ultram PO 100 mg Q6H PRN Administration Pain - Routine Chest/Breast/Axilla Exam Chest wall: Present: pacemaker ( well healed old scar) Results 07/07/17 04:45 07/07/17 04:45 Intake and Output 07/07/17 07/08/17 07/08/17 22:59 06:59 14:59 Output Total 500 / 500 Balance -500 / -500 Output: Urine 500 / 500 Other: Urine Appearance Clear Urine Color Bright Yellow Urine Odor Normal # Voids 2 Assessment and Plan - Assessment and Plan pt was ersonally interviewed and examined and agree with nthe above findings including the assessment and plan. discharge meds discussed with primary team Hospital Course Summary Disclaimer: The visit summary below is not to be considered part of the above Progress Note.
[2017-07-07] MEDS: PHOSPHORUS 250 MG TABLET PO SCH (10:51)
[2017-07-07] MEDS: CEFTRIAXONE 1 G in NS 50 ML IV SCH (10:52)
[2017-07-07] MEDS: FUROSEMIDE 40 MG TABLET PO SCH (10:52)
[2017-07-07] MEDS: ASPIRIN *EC* 81 MG TABLET PO SCH (10:52)
[2017-07-07] MEDS: CLOPIDOGREL 75 MG TABLET PO SCH (10:52)
[2017-07-07] MEDS: GUAIFENESIN/D-METHORPHAN 600mg/30mg TABLET PO SCH (10:52)
[2017-07-07] MEDS: SALINE FLUSH 10ml SYRINGE IVF PRN ×2 (10:53→12:22)
[2017-07-07] MEDS: BUDESONIDE INH.SOLN 0.5mg/2ml NEB AEROSOL SCH (11:03)
[2017-07-07 11:18] VITALS: O2SAT 91
[2017-07-07] MEDS: ACETAMINOPHEN 500 MG TABLET PO PRN (12:25)
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
[2017-07-07 15:04] VITALS: BP 125/61; PULSE 62; RESP 20
== END 2017-07-07 16:34 | disposition home health service (06) | DRG 194 ==
LOC: MED 05:55 → ED 05:55 → MED 08:10 → SUATTDRO 17:45
PROVIDERS: ADMIT Hospitalist; ATTEND Hospitalist